=== PATIENT | male | born 1995 | race Caucasian/White ===

== ENCOUNTER 2020-03-04 19:29 | Emergency (ER) | payer MEDICAID, SELFPAY ==
[2020-03-04 20:24] VITALS: BP 144/101; PULSE 81; RESP 16; TEMP 36.9; O2SAT 100; BMI 35.6
--- NOTE | 2020-03-04 20:41 | HMH.EDUTC ---
[facility] [place] Clinical Impression: Rash Disposition: Home, Self-Care Condition on Discharge: Good Instructions: Poison [place], Poison [place], Poison [place] Additional Instructions: follow up with pcp if symptoms worsen or no improvement return or be seen in ed continue steroids and benadryl Referrals: Michelle Negrete APRN [Primary Care Provider] - Time of Disposition: 20:50 Medical Decision Making - Pranay Inquiry Pt receiving controlled substance: No Vital Signs: 03/04/20 20:24 Temperature 98.4 F Temperature Source Oral Pulse Rate [Radial] 81 Respiratory Rate 16 Blood Pressure [Right Arm] 144/101 H Blood Pressure Mean [Right Arm] 115 Blood Pressure Source [Right Arm] Automatic Cuff Blood Pressure Position [Right Arm] Sitting 02 Sat by Pulse Oximetry 100 Oxygen Delivery Method Room Air [facility] HPI - General Chief complaint: Urgent [facility] Stated complaint: Rash Time Seen by Provider: 03/04/20 20:41 Mode of Arrival: Ambulatory Source of Information: Patient Limitations: No Limitations Description of Symptoms (Recalled from Triage Doc. by RN): rash x 5 days HEENT Symptoms (Recalled from RN notes): No Resp Symptoms (Recalled from RN notes): No Skin Symptoms (Recalled from RN notes): Yes MS Symptoms (Recalled from RN notes): No Functional Status (Recalled from RN notes): wnl - History of Present Illness Provider Complaint: 25 yr old male presents for rash to arms,groin, legs, abd and back. pt states he has been taking prednisone dose pack on day 3 and the rash is spreading. pt states he took benadryl 2 hours ago and still no improvement and was told by his md to come get a steroid shot. - Worker's Comp Is this a Worker's Comp case?: No [facility] History - Hepatitis A Screen Drug use history?: No High risk sexual behaviors?: No History of sexually transmitted infection?: No Currently employed?: No Childcare worker?: No Do you have indoor plumbing?: Yes Do you have electricity?: Yes Attestation statement:: This patient has been screened for Hepatitis A risk factors. I have reviewed the patient's past medical history: Yes - Social History Smoking Status: Current every day smoker # Packs/Day (cigarettes): 1 Alcohol Intake: never Occupational Status: other ROS Obtained: Yes Systems reviewed as appropriate & no additional complaints - Constitutional Constitutional: Reports system reviewed and no additional complaints, except as docu, Denies fever(s) - Eyes Eyes: Reports system reviewed and no additional complaints, except as docu, Denies change in vision - ENT Ears, Nose, Mouth, and Throat: Reports system reviewed and no additional complaints, except as docu, Denies bleeding gums, Denies pain with swallowing - Cardiovascular Cardiovascular: Reports system reviewed and no additional complaints, except as docu, Denies pedal edema - Respiratory Respiratory: Yes system reviewed and no additional complaints, except as docu, No coughing up blood - Gastrointestinal Gastrointestingal: Reports: system reviewed and no additional complaints, except as docu. Denies: loose stools - Genitourinary Female Genitourinary: Reports system reviewed and no additional complaints, except as docu, Denies nocturia - Musculoskeletal Musculoskeletal: Reports decreased muscle mass, Denies muscle cramps - Integumentary/Breasts Skin/Breast: Reports system reviewed and no additional complaints, except as docu, Reports rash - Neurologic Neurologic: Reports system reviewed and no additional complaints, except as docu, Denies dizziness - Endocrine Endocrine: Reports system reviewed and no additional complaints, except as docu, Denies fatigue - Hematologic/Lymphatic Henatologic/Lymphatic: Reports system reviewed and no additional complaints, except as docu, Denies lymphadenopathy - Allergic/Immunologic Allergic/Immunologic: Reports system reviewed and no additional complaints, except as docu, Denies itchy e
[2020-03-04 21:16] VITALS: BP 144/101; PULSE 81; RESP 16; TEMP 36.9; O2SAT 100
== END 2020-03-04 21:19 | disposition home or self-care (01) ==
PROVIDERS: Emergency Provider Nurse Practitioner Family; PCP Nurse Practitioner Family
DX: R21 Rash and other nonspecific skin eruption (principal); F17.210 Nicotine dependence, cigarettes, uncomplicated
CPT/HCPCS: 96372; 99201

== ENCOUNTER 2020-03-11 12:31 | Emergency (ER) | payer MEDICAID, SELFPAY ==
[2020-03-11 12:38] VITALS: BP 128/97; PULSE 108; RESP 17; TEMP 36.9; O2SAT 98; BMI 36.6
[2020-03-11 13:02] VITALS: BP 105/52; PULSE 73; RESP 20; O2SAT 98
--- NOTE | 2020-03-11 13:08 | XR_ITS ---
PROCEDURE: XR FEMUR RT 2V CLINICAL INDICATION: injury COMPARISON: No exams were available for comparison FINDINGS: No fracture or dislocation. No lytic or blastic change. There is normal mineralization. The joint spaces are well-preserved. No significant degenerative/arthritic changes. No erosive changes evident. Other findings:None. IMPRESSION: No acute findings. Dictated by: Dr. Miguel Ham MD 03/11/2020 13:55 Dr. Miguel Ham MD in [place] 03/11/2020 13:55
--- NOTE | 2020-03-11 13:10 | HMH.EDGENADL ---
ED Disposition Clinical Impression: Contusion of thigh, right Qualifiers: Encounter type: initial encounter Qualified Code(s): S70.11XA - Contusion of right thigh, initial encounter Disposition: Home, Self-Care Condition on Discharge: Good Instructions: DI for Contusion Additional Instructions: Use your crutches as needed. Ice 20 minutes 4-5 times a day and elevation of your leg to reduce pain and swelling. Ibuprofen 800 mg every 8 hours for pain. Follow-up with primary care provider if not improved in 4 to 5 days. Additional instructions for EXTREMITY PAIN: Return to an emergency department immediately if you have uncontrollable pain, fever, loss of feeling or inability to move your injured extremity. Referrals: Michelle Negrete APRN [Primary Care Provider] - - Critical Care Critical Care Time: No Attestation: On , the high probability of a clinically significant, sudden or life threatening deterioration of the following system(s) required my full and direct attention, intervention and personal management. The time I documented below is in addition to time spent performing reported procedures but includes the following listed in this critical care notation. Medical Decision Making - Pranay Inquiry Pt receiving controlled substance: No Vital Signs: 03/11/20 12:38 03/11/20 13:02 Temperature 98.4 F Temperature Source Oral Pulse Rate [Right Radial] 108 H 73 Respiratory Rate 17 20 Blood Pressure [Right Arm] 128/97 H 105/52 L Blood Pressure Mean [Right Arm] 107 69 Blood Pressure Source [Right Arm] Automatic Cuff Blood Pressure Position [Right Arm] Sitting 02 Sat by Pulse Oximetry 98 98 Oxygen Delivery Method Room Air Room Air Orders (Tests/Meds): ORDERS Category Date Time Status XR femur RT 2V Stat Exams 03/11/20 13:08 Taken - Radiology Data #1 Image(s): Femur Image Reviewed: Yes I reviewed the patient's radiology image Preliminary Findings: Normal/NAD General Adult HPI - General Chief complaint: Extremity Injury, Lower Stated complaint: rt leg acc 03/11/20 Time Seen by Provider: 03/11/20 13:23 Mode of Arrival: Ambulatory Limitations: No Limitations Description of Symptoms (Recalled from ER Triage Doc. by RN): pt presents to ed with c/o right thigh pain just above knee. pt states he was kicked in the leg by a horse yesterday. pt states he took motrin at 0900 today with no relief. - History of Present Illness HPI narrative: The patient was kicked by a horse in his distal lateral right anterior thigh yesterday. He has a small visible bruise in that area but mainly complains of pain which he feels like is in the muscle. It hurts when he flexes his right knee. He says he has been doing okay walking on it., Says he was mostly just concerned about the muscle. He has taken ibuprofen at home without relief. - Related Data Allergies Allergy/AdvReac Type Severity Reaction Status Date / Time No Known Allergies Allergy Verified 03/11/20 12:42 [facility] History - Hepatitis A Screen Drug use history?: No High risk sexual behaviors?: No History of sexually transmitted infection?: No Currently employed?: No Childcare worker?: No Do you have indoor plumbing?: Yes Do you have electricity?: Yes Attestation statement:: This patient has been screened for Hepatitis A risk factors. I have reviewed the patient's past medical history: Yes Medical History: Denies:: Diabetes Mellitus Type 1, Diabetes Mellitus Type 2 - Social History Smoking Status: Current every day smoker # Packs/Day (cigarettes): 1 Alcohol Intake: current Alcohol Intake Frequency:: a few times a month Occupational Status: employed ROS Obtained: Yes Systems reviewed as appropriate & no additional complaints - Musculoskeletal Musculoskeletal: Reports as per HPI - Neurologic Neurologic: Reports numbness, Denies weakness Physical Exam - General General appearance: alert, in no apparent distress
--- NOTE | 2020-03-11 13:13 | PC.NURSE ---
pt going to XRAY
[2020-03-11 13:50] VITALS: BP 105/52; PULSE 73; RESP 20; TEMP 36.9; O2SAT 98
== END 2020-03-11 13:50 | disposition home or self-care (01) ==
PROVIDERS: Emergency Provider Emergency Medicine; PCP Nurse Practitioner Family
DX: S70.11XA Contusion of right thigh, initial encounter (principal); W55.12XA Struck by horse, initial encounter; Y92.73 Farm field as the place of occurrence of the external cause; F17.210 Nicotine dependence, cigarettes, uncomplicated
CPT/HCPCS: 73552; 99282

== ENCOUNTER 2020-07-30 16:28 | Emergency (ER) | payer SELFPAY ==
[2020-07-30] VITALS (7 sets, daily range): BP systolic 124–169; BP diastolic 71–110; PULSE 62–87; RESP 15–16; TEMP 36.8–36.9; O2SAT 98–100; BMI 38.0
--- NOTE | 2020-07-30 16:53 | ECG_ITS ---
APPROVED REPORT Exam: Resting ECG HR:92 bpm ECG Measurements Heart Rate 92 AXES HI 156 P 64 QRSd 98 QRS 10 QT 366 T 25 QTc 452 Conclusion Normal sinus rhythm Isolated Q in iii Abnormal ECG Electronically signed by : Sekou Garcias, 07/31/2020 06:56:14
--- NOTE | 2020-07-30 17:01 | HMH.EDABDPAI ---
ED Disposition Clinical Impression: Gastritis Disposition: Still a Patient Condition on Discharge: Good Instructions: DI for Acute Abdominal Pain Referrals: PCP,No [Primary Care Provider] - - Critical Care Critical Care Time: No Attestation: On 07/30/20, the high probability of a clinically significant, sudden or life threatening deterioration of the following system(s) required my full and direct attention, intervention and personal management. The time I documented below is in addition to time spent performing reported procedures but includes the following listed in this critical care notation. Medical Decision Making - Medical Records Medical records reviewed: Yes: I reviewed the patient's medical records. - Pranay Inquiry Pt receiving controlled substance: No Vital Signs: 07/30/20 16:31 07/30/20 17:40 07/30/20 18:30 Temperature 98.5 F Temperature Source Oral Pulse Rate [Right] 87 73 63 Respiratory Rate 16 16 16 Blood Pressure [Right Arm] 160/98 H 162/110 H 124/71 Blood Pressure Mean [Right Arm] 118 127 88 Blood Pressure Source [Right Arm] Automatic Cuff Automatic Cuff Blood Pressure Position [Right Arm] Sitting Sitting Sitting 02 Sat by Pulse Oximetry 98 98 100 Oxygen Delivery Method Room Air Room Air Room Air - Lab Data Lab results reviewed: Yes: I reviewed the patient's lab results. Lab Results 07/30/20 16:49: WBC 10.1, RBC 5.52, Hgb 17.4, Hct 50.0, MCV 90.6, MCH 31.5 H, MCHC 34.7, RDW 13.3, Plt Count 254, MPV 7.7, Neut % (Auto) 56.7, Lymph % (Auto) 35.4, [place] % (Auto) 5.3, Eos % (Auto) 1.9, Baso % (Auto) 0.8, Neut # (Auto) 5.8, Lymph # (Auto) 3.6, [place] # (Auto) 0.5, Eos # (Auto) 0.2, Baso # (Auto) 0.1 07/30/20 16:49: Sodium 139, Potassium 3.4 L, Chloride 101, Carbon Dioxide 27, Anion Gap 14.4, BUN 8 L, Creatinine 0.70, Estimated Creat Clear 288, Estimated GFR 136, Est GFR ( Amer) 165, Glucose 102 H, Calcium 10.0, Total Bilirubin 0.6, AST 37, ALT 47, Alkaline Phosphatase 78, Troponin I < 0.01, Total Protein 8.3 H, Albumin 4.9, Globulin 3.4 H, Albumin/Globulin Ratio 1.4, Lipase 42 Result diagrams: 07/30/20 16:49 07/30/20 16:49 Orders (Tests/Meds): ED MEDICATIONS Generic Name Dose Route Start Last Admin Trade Name Freq PRN Reason Stop Dose Admin Sodium Chloride 8 ml 07/30/20 16:39 07/30/20 16:46 Sodium Chloride 0.9% 10ml Vial IV 08/29/20 16:38 8 ml NEEDED PRN Administration dilute pepcid Discontinued Medications Generic Name Dose Route Start Last Admin Trade Name Freq PRN Reason Stop Dose Admin Belladonna Alkaloids 60 ml 07/30/20 16:39 07/30/20 16:46 Gi Cocktail 60ml Udc PO 07/30/20 16:40 60 ml ONCE ONE Administration Famotidine 20 mg 07/30/20 16:39 07/30/20 16:46 Famotidine 20mg/2ml Vial IV 07/30/20 16:40 20 mg ONCE ONE Administration Ketorolac Tromethamine 30 mg 07/30/20 17:43 07/30/20 17:58 Ketorolac 30mg/Ml Vial IV 07/30/20 17:44 30 mg ONCE ONE Administration Morphine Sulfate 4 mg 07/30/20 17:39 07/30/20 18:00 Morphine 4mg/Ml Syringe IV 07/30/20 17:40 Not Given ONCE ONE ORDERS Category Date Time Status Troponin I Q3H Lab 07/30/20 18:46 Received Troponin I Q3H Lab 07/30/20 22:45 Ordered Medical Decision Narrative: 25-year-old male presenting with epigastric pain. Nontoxic, afebrile, hemodynamically stable. Initial and repeat abdominal exam negative for rebound/guarding/rigidity. This is not an acute abdomen. Patient received morphine, Toradol, GI cocktail and Pepcid with some symptomatic relief. Initial troponin is negative. EKG is nonischemic and without arrhythmia. CBC, CMP's and lipase are normal/nonactionable. Awaiting second troponin and will turn over the care of this patient to the oncoming physician. Patient remained stable in my care. Abdominal Pain HPI - General Chief Complaint: Abdominal Pain Stated Complaint: Upper possible gastric pain Time Seen by Provider: 0
[2020-07-30 17:02] LABS: Basophils # 0.1 K/mm3 (0-0.2); Basophils % 0.8 % (0.1-2.0); Eosinophils # 0.2 K/mm3 (0.0-0.4); Eosinophils % 1.9 % (0.1-12.0); Hemoglobin 17.4 g/dL (14.1-18.0); Lymphocytes # 3.6 K/mm3 (0.7-4.5); Lymphocytes % 35.4 % (10-50); Mean Corpuscular HGB Conc 34.7 g/dL (31.8-35.4); Mean Corpuscular Hemoglobin 31.5 pg (27.0-31.2); Mean Corpuscular Volume 90.6 fl (80-94); Mean Platelet Volume 7.7 fl (7.4-10.4); Monocytes # 0.5 K/mm3 (0.1-1.0); Monocytes % 5.3 % (1.7-9.3); Neutrophils # 5.8 K/mm3 (1.8-7.8); Neutrophils % 56.7 % (37.0-80.0); Platelet Count 254 K/mm3 (142-424); Red Blood Count 5.52 M/mm3 (4.60-6.20); Red Cell Distribution Width 13.3 % (11.5-17.5); White Blood Count 10.1 K/mm3 (4.8-10.8)
--- NOTE | 2020-07-30 17:11 | PC.NURSE ---
MD request two hour cardiac enzymes.
[2020-07-30 17:13] LABS: Alanine Aminotransferase 47 U/L (12-78); Albumin Level 4.9 g/dl (3.5-5.0); Albumin/Globulin Ratio 1.4 (1.1-1.8); Alkaline Phosphatase 78 U/L (38-126); Anion Gap 14.4 mEq/L (5-15); Aspartate Amino Transferase 37 U/L (17-59); Bilirubin,Total 0.6 mg/dl (0.2-1.3); Blood Urea Nitrogen 8 mg/dl (9-20); Carbon Dioxide 27 mmol/L (22.0-30.0); Chloride 101 mmol/L (98-107); Creatinine Clearance Estimated 288 mL/min (50-200); Estimated Glomerular Filt Rate 136 ml/min (>60); GFR (African American) 165 ML/MIN (>60); Globulin 3.4 g/dL (1.3-3.2); Glucose 102 mg/dl (74-100); Lipase 42 U/L (23-300); Potassium 3.4 mmoL/L (3.5-5.1); Sodium 139 mmol/L (136-145); Total Protein,Serum 8.3 g/dl (6.3-8.2)
[2020-07-30 17:30] LABS: Troponin I < 0.01 ng/ml (0.00-0.034)
--- NOTE | 2020-07-30 17:41 | PC.NURSE ---
MD requested pt get IV morphine, I advised MD I would not be giving the IV pain medication unless he had a pile driver engineer. Spoke with pt who advised he did not have a ride. PT agreeable to toradol.
[2020-07-30 22:52] LABS: Troponin I < 0.01 ng/ml (0.00-0.034)
== END 2020-07-30 20:43 | disposition home or self-care (01) ==
PROVIDERS: Emergency Provider Physician Assistant
DX: K29.70 Gastritis, unspecified, without bleeding (principal); F17.210 Nicotine dependence, cigarettes, uncomplicated
CPT/HCPCS: 80053; 83690; 84484; 85025; 93005; 96374; 96375; 99283

== ENCOUNTER 2022-08-08 18:27 | Emergency (ER) | payer MEDICAID, SELFPAY ==
[2022-08-08 18:49] VITALS: BP 136/87; PULSE 80; RESP 18; TEMP 36.6; O2SAT 99; BMI 38.0
[2022-08-08 18:55] VITALS: BP 136/87; PULSE 80; RESP 18; TEMP 36.6; O2SAT 99; BMI 37.9
--- NOTE | 2022-08-08 19:16 | EXP.UTC ---
Discharge Plan Disposition Patient Disposition: Home, Self-Care Condition: Good Prescriptions Prescriptions: New omeprazole 40 mg capsule,delayed release(DR/EC) 40 mg PO DAILY 14 Days Qty: 14 0RF ondansetron 4 mg tablet,disintegrating 4 mg PO Q8H PRN (Reason: nausea and vomiting) Qty: 10 0RF No Action pantoprazole 40 MG tablet,delayed release (DR/EC) 40 mg PO DAILY Qty: 30 0RF Referrals Follow up/Referrals: Santino Mccloud MD [Primary Care Provider] - See instructions Activity Restrictions/Add. Instructions Additional Instructions/Restrictions: Too late to start Tamiflu. Most effective when started within 48 hours of symptoms onset Lots of rest Increase Fluids water, Gatorade, powerade, pedialyte,if infant/toddler/child Alternate Tylenol and / or ibuprofen as discussed for fever, aches, chills Follow up IMMEDIATELY with your family doctor for new or worsening Symptoms OR no noticeable improvement over the next 48-72 hours, 911 for difficulty or breathing You or your child area contagious until no fever, aches, chills for 24 hours with medication for symptoms Help Prevent the spread of influenza: ?Wash your hands often. Use soap and water. Wash your hands after you use the bathroom, change a child's diapers, or sneeze. Wash your hands before you prepare or eat food. Use gel hand cleanser that has 60% alcohol, when soap and water are not available. Do not touch your eyes, nose, or mouth unless you have washed your hands first. Cover your mouth when you sneeze or cough. Cough into a tissue or the bend of your arm. If you use a tissue, throw it away immediately and wash your hands. Clean shared items with a germ-killing cotton cleaner. Clean table surfaces, doorknobs, and light switches. Do not share towels, silverware, and dishes with people who are sick. Wash bed sheets, towels, silverware, and dishes with soap and water. Wear a mask over your mouth and nose if you are sick. The face mask may help protect others from becoming infected with the flu. Wear the mask when in common areas of your home or if you seek care with a healthcare provider. Stay away from others if you are sick. Stay at home until 24 hours after your fever and symptoms are gone. Clinical Impressions Clinical Impression: Influenza A Stand Alone Forms Stand Alone Forms: Work/School Release Instructions Patient Instructions: DI for Influenza -- Adult, Ondansetron Discharge ED Provider: Ann-Marie Damian [facility] HPI General Stated complaint: fever.vomiting HUBBARD Body Aches Mode of Arrival: Ambulatory Source of Information: Patient Limitations: No Limitations Time Seen by Provider: 08/08/22 19:23 Description of Symptoms (Recalled from Triage Doc. by RN): PATIENT C/O FEVER, HEADACHE, BODY ACHES AND STOMACH ACHE X 3 DAYS HEENT Symptoms (Recalled from RN notes): Yes Resp Symptoms (Recalled from RN notes): No Skin Symptoms (Recalled from RN notes): No MS Symptoms (Recalled from RN notes): No Functional Status (Recalled from RN notes): WNL History of Present Illness Provider Complaint: Patient states that for the last 3 days he has been having body aches, chills, headache, upset stomach and N/V States that he feels like he may have the flu or something States that today his fever was better but still not feeling well States that also he is out of his stomach medication and wanted to see if he could get a prescription for some until he sees his PCP Related Data Previous Rx's Medication Instructions Recorded pantoprazole 40 mg tablet,delayed 40 mg PO DAILY #30 tabs 07/30/20 release omeprazole 40 mg capsule,delayed 40 mg PO DAILY 14 days #14 caps 08/08/22 release ondansetron 4 mg disintegrating 4 mg PO Q8H PRN nausea and 08/08/22 tablet vomiting #10 tabs Allergies Allergy/AdvReac
[2022-08-08 19:28] VITALS: BP 136/87; PULSE 80; RESP 18; TEMP 36.6; O2SAT 99
[2022-08-08 19:28] LABS: UTC Influenza A Antigen Negative (Negative)
[2022-08-08 19:29] LABS: UTC Influenza B Antigen Negative (Negative)
== END 2022-08-08 19:45 | disposition home or self-care (01) ==
PROVIDERS: Emergency Provider Nurse Practitioner; PCP Emergency Medicine
DX: J10.1 Influenza due to other identified influenza virus with other respiratory manifestations (principal)
CPT/HCPCS: 87804; 99212; 99213; G0463

== ENCOUNTER 2023-05-07 01:24 | Emergency (ER) | payer SELFPAY ==
[2023-05-07 01:24] VITALS: BP 127/76; PULSE 87; RESP 16; TEMP 36.5; O2SAT 97; BMI 32.3
--- NOTE | 2023-05-07 01:37 | CT_ITS ---
PROCEDURE INFORMATION: Exam: CT Abdomen And Pelvis With Contrast Exam date and time: 05/07/2023 2:04 AM Age: 28 years old Clinical indication: Abdominal pain; Epigastric; Additional info: Epigastric/ruq pain, recent heavy drinking TECHNIQUE: Imaging protocol: Computed tomography of the abdomen and pelvis with contrast. Radiation optimization: All CT scans at this facility use at least one of these dose optimization techniques: automated exposure control; mA and/or kV adjustment per patient size (includes targeted exams where dose is matched to clinical indication); or iterative reconstruction. Contrast material: ISOVUE; Contrast volume: 75 ml; Contrast route: IV; REPORTING DATA: Count of CT and Cardiac NM exams in prior 12 months: This patient has received 0 known CTs and 0 known cardiac nuclear medicine studies in the 12 months prior to the current study. COMPARISON: No relevant recent comparison exams. FINDINGS: Pancreaticohepatobiliary: Liver: Enlarged liver shows probable diffuse fatty infiltration. No significant intra-or extrahepatic ductal dilation. Gallbladder: Unremarkable without obvious gallstones. Pancreas: Normal in size normal in size and attenuation without peripancreatic fluid or obvious mass. Spleen: Normal in size and attenuation. . Genitourinary: Adrenal gland: No adrenal mass. Kidneys: Nonobstructive punctate RIGHT renal stone(s) measuring 1-3 mm. Kidneys are otherwise unremarkable. Urinary bladder: Distended urinary bladder appears unremarkable. Bilateral inguinal hernia containing fat. No free fluid in the pelvis. . Gastrointestinal: Bowel: Colon contains a moderate amount of air and fecal matter. Distended air/fluid containing distal thoracic esophagus suggestive of reflux. No free intraperitoneal air or fluid collection. Appendix: A normal APPENDIX is visualized. . Other findings: Aorta: Aorta appears unremarkable without evidence of aortic aneurysm. Lymph nodes: No bulky lymph node enlargement. 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 Chronic bilateral L4 pars fractures with spondylolisthesis of L4 on L5. Soft tissues: Periumbilical hernia containing fat. IMPRESSION: Nonemergent/incidental findings as described without any acute abdominopelvic abnormality.
[2023-05-07 01:47] LABS: Basophils # 0.1 K/mm3 (0-0.2); Basophils % 0.8 % (0.1-2.0); Eosinophils # 0.3 K/mm3 (0.0-0.4); Eosinophils % 3.7 % (0.1-12.0); Hematocrit 47.4 % (42.0-52.0); Hemoglobin 16.9 g/dL (14.1-18.0); Lymphocytes # 3.1 K/mm3 (0.7-4.5); Lymphocytes % 34.9 % (10-50); Mean Corpuscular HGB Conc 35.7 g/dL (31.8-35.4); Mean Corpuscular Hemoglobin 33.8 pg (27.0-31.2); Mean Corpuscular Volume 94.8 fl (80-94); Monocytes # 0.4 K/mm3 (0.1-1.0); Monocytes % 4.4 % (1.7-9.3); Neutrophils % 56.4 % (37.0-80.0); Platelet Count 223 K/mm3 (142-424); Red Blood Count 5.01 M/mm3 (4.60-6.20); Red Cell Distribution Width 13.3 % (11.5-17.5); White Blood Count 8.9 K/mm3 (4.8-10.8)
[2023-05-07 01:52] LABS: Alanine Aminotransferase 42 U/L (12-78); Albumin Level 4.8 g/dl (3.5-5.0); Albumin/Globulin Ratio 1.5 (1.1-1.8); Alkaline Phosphatase 46 U/L (38-126); Anion Gap 16.4 mEq/L (5-15); Aspartate Amino Transferase 43 U/L (17-59); Bilirubin,Total 0.5 mg/dl (0.2-1.3); Blood Urea Nitrogen 5 mg/dl (9-20); Calcium 8.9 mg/dl (8.4-10.2); Carbon Dioxide 23 mmol/L (22.0-30.0); Chloride 106 mmol/L (98-107); Creatinine Clearance Estimated 262 mL/min (50-200); Estimated Glomerular Filt Rate 159 ml/min (>60); GFR (African American) 193 ML/MIN (>60); Globulin 3.2 g/dL (1.3-3.2); Glucose 126 mg/dl (74-100); Lipase 43 U/L (23-300); Potassium 3.4 mmoL/L (3.5-5.1); Sodium 142 mmol/L (136-145)
--- NOTE | 2023-05-07 02:19 | HMH.EDGENADL ---
Discharge Plan Disposition Patient Disposition: Home, Self-Care Prescriptions Prescriptions: No Action pantoprazole 40 MG tablet,delayed release (DR/EC) 40 mg PO DAILY Qty: 30 0RF omeprazole 40 mg capsule,delayed release(DR/EC) 40 mg PO DAILY 14 Days Qty: 14 0RF ondansetron 4 mg tablet,disintegrating 4 mg PO Q8H PRN (Reason: nausea and vomiting) Qty: 10 0RF Referrals Follow up/Referrals: Provider,Referral, MD [Primary Care Provider] - See instructions Activity Restrictions/Add. Instructions Additional Instructions/Restrictions: Please follow-up with your primary care provider. Please begin taking omeprazole as previously prescribed. Please avoid NSAIDs as they can make your symptoms significantly worse. Alcohol, coffee and acidic drinks will make it worse as well. Please follow-up with the resources provided for treatment of your alcoholism. Be careful with quitting alcohol cold turkey, you can go into serious/life-threatening withdrawal. Clinical Impressions Clinical Impression: Gastritis, Alcohol use disorder Instructions Patient Instructions: DI for Acute Abdominal Pain Discharge ED Provider: Karan Mack Adult HPI General Chief complaint: Abdominal Pain Stated complaint: Abdominal Pain Time Seen by Provider: 05/07/23 01:28 Mode of Arrival: EMS Source of Information: Patient Limitations: No Limitations Description of Symptoms (Recalled from ER Triage Doc. by RN): pt reports had been drinking alcohol today and started having epigastric pain and nausea, reports has been having these issues for the last 6 weeks. History of Present Illness HPI narrative: 28-year-old male, history of chronic alcohol use that was recently exacerbated due to custody issues, presents with acute on chronic epigastric pain. Patient reports that he had sudden onset severe epigastric pain with associated nausea a few hours prior to arrival. Patient reports that he has been drinking heavily over the last couple of months (usually a 12 pack and a pint per day) but has been a chronic drinker since he was 15. He reports history of gastritis, denies history of pancreatitis. No prior surgeries. Smokes tobacco and marijuana, denies IV drug use. Patient has been drinking tonight. Related Data Previous Rx's Medication Instructions Recorded pantoprazole 40 mg tablet,delayed 40 mg PO DAILY #30 tabs 07/30/20 release omeprazole 40 mg capsule,delayed 40 mg PO DAILY 14 days #14 caps 08/08/22 release ondansetron 4 mg disintegrating 4 mg PO Q8H PRN nausea and 08/08/22 tablet vomiting #10 tabs Allergies Allergy/AdvReac Type Severity Reaction Status Date / Time No Known Allergies Allergy Verified 03/11/20 12:42 [facility] Disclaimer: The information contained in this section may have been updated after the patient was seen, as this information can be updated by other users. Medical History (Updated 05/07/23 @ 03:51 by Karan Mack MD) No significant past medical history Social History (Updated 08/08/22 @ 19:05 by Ninfa Walker RN) Smoking Status: Current every day smoker second hand exposure: Yes alcohol intake: current current occupational status: employed Travel in the last 8 weeks: None ROS Obtained: Yes All systems reviewed & no additional complaints except as documented Physical Exam General General appearance: alert and anxious Head Head exam: atraumatic and normocephalic Eye Eye exam: Present normal appearance, PERRL and EOMI ENT ENT exam: Present normal oropharynx and normal external ear exam Neck Neck exam: Present normal inspection and full ROM Chest Chest inspection: Present normal inspection and symmetric chest wall rise; Absent tenderness Respiratory Respiratory exam: Present normal lung sounds bilaterally; Absent respiratory distress Cardiovascular Cardiovascular exam: Present regular rate and normal rhythm Abdominal Exam Abdominal exam: Present soft and te
--- NOTE | 2023-05-07 02:20 | PC.NURSE ---
pt reports decrease in abd pain, denies n/v. awaiting CT results.
[2023-05-07 02:45] VITALS: BP 119/64; PULSE 62; O2SAT 98
[2023-05-07 03:00] VITALS: PULSE 61; O2SAT 96
[2023-05-07 03:30] VITALS: BP 116/73; PULSE 62; O2SAT 94
[2023-05-07 04:15] VITALS: BP 116/73; PULSE 62; RESP 20; TEMP 36.6; O2SAT 98
--- NOTE | 2023-05-07 04:16 | PC.NURSE ---
Called pts mother per request for ride, stated she would send someone to pick pt up. awaiting ride
== END 2023-05-07 04:33 | disposition home or self-care (01) ==
PROVIDERS: Emergency Provider Emergency Medicine
DX: K29.70 Gastritis, unspecified, without bleeding (principal); F10.20 Alcohol dependence, uncomplicated
CPT/HCPCS: 74177; 80053; 83690; 85025; 96361; 96374; 96375; 99285; J2405; Q9967

== ENCOUNTER 2024-06-27 10:43 | Emergency (ER) | payer SELFPAY ==
[2024-06-27 10:44] VITALS: BP 139/91; PULSE 82; RESP 16; TEMP 36.7; O2SAT 99; BMI 38.0
[2024-06-27 10:54] VITALS: PULSE 75; O2SAT 96
--- NOTE | 2024-06-27 10:55 | XR_ITS ---
PROCEDURE INFORMATION: Exam: XR Left Wrist Exam date and time: 06/27/2024 10:53 AM Age: 29 years old Clinical indication: Injury or trauma; Fall; Blunt trauma (contusions or hematomas); Wrist; Left TECHNIQUE: Imaging protocol: Radiologic exam of the left wrist. Views: 1 or 2 views. COMPARISON: CR Hand L 06/27/2024 10:50 AM FINDINGS: Bones/joints: No evidence of acute fracture or malalignment. Carpal arcs are maintained. Soft tissues: Unremarkable. IMPRESSION: No evidence of acute osseous abnormality in the left wrist.
--- NOTE | 2024-06-27 10:55 | XR_ITS ---
PROCEDURE INFORMATION: Exam: XR Left Hand Exam date and time: 06/27/2024 10:50 AM Age: 29 years old Clinical indication: Injury or trauma; Fall; Blunt trauma (contusions or hematomas); Hand; Left TECHNIQUE: Imaging protocol: Radiologic exam of the left hand. Views: 1 or 2 views. COMPARISON: No relevant prior studies available. FINDINGS: Bones/joints: Nondisplaced fracture in the 4th distal phalangeal tuft. Joint alignment remains congruent. No other evidence of fracture in the left hand. Soft tissues: Unremarkable. IMPRESSION: Nondisplaced fracture in the 4th distal phalangeal tuft.
--- OUTSIDE RECORDS SUMMARY | 2024-06-27 10:57 | XMS_ITS | Encounter Summary ---
Author Organization [facility] Address [address] [place] [address] Care Team Providers Care Accounts Specialist Name Role Phone Unavailable Primary Care Provider Unavailabl e Reason for Visit * Reason Onset Date Comments REFERRAL NEEDED 10/10/2021 Encounter Details Date Type Department Care Team (Late st Contact Info) Description 10/10/2021 Telephone [facility] [address] [facility] [address] [place] [address] Provider, [place] [address] REFERRAL NEEDED Social History Tobacco Use Types Packs/Day Years Used Date Smoking Tobacco: Never Assessed Sex and Gender Information Value Date Recorded Sex Assigned at Not on file Legal Sex Male 2:18 PM EDT Gender Identity Not on file Sexual Orientation Not on file documented as of this encounter Miscellaneous Notes * Telephone Encounter - Marysol Juarez RegSched Rep - 10/10/2021 2:24 PM EDT PATIENT STATES HE WAS REFERRED TO DR GILLESPIE MONTHS AGO BY HIS CHIROPRACTOR, BUT WAS UNABLE TO FOLLOW THROUGH FOR PERSONAL REASONS. PATIENT HAD MRI APPROX 6 MONTHS AGO AND HAS HAD NO PREV NS. UNABLE TO COMPLETE FULL REGISTRATION, PATIENT WAS AT WORK. PATIENT STATES HE WILL CONTACT CHIROPRACTOR WITH HUB FAX # TO SEND REFERRAL, PROGRESS NOTES, AND MRI REPORT. documented in this encounter Plan of Treatment Not on file documented as of this encounter Visit Diagnoses Not on filedocumented in this encounter
--- OUTSIDE RECORDS SUMMARY | 2024-06-27 10:57 | XMS_ITS | Clinical Summary ---
Author Organization [facility] Address [address] [place] [address] Care Team Providers Care Ice Cream Truck Driver Name Role Phone Unavailable Primary Care Provider Unavailabl e Social History Tobacco Use Types Packs/Day Years Used Date Smoking Tobacco: Never Assessed Abuse Screen Answer Date Recorded Unsafe at Home or Work/School Not on file Feels Threatened by Someone? Not on file Does Anyone Keep You from Co ntacting Others or Doint Things Outside the Home? Not on file 05/09/2023 Physical Sign of Abuse Present Not on file 1 Housing Stability Answer Date Recorded Current Living Arrangements Not on file 04/27 Potentially Unsafe Housing Conditions Not on tiffanie e 05/09/2023 Family and Community Support Answer Nick e Recorded Help with Day-to-Day Activities Not on file 05/09/2023 Lonely or Isolated Not on file 05/09/2023 Employment Answer Date Recorded Do you want help finding or keeping work or a shreyas b? Not on file 05/09/2023 Disabilities Answer Date Recorded Concentrating, Remembering, or Making Decisions Difficulty Not on file 05/09/2023 Doing Errands Independently Difficulty Not on fi le 05/09/2023 Education Answer Date Recorded Help with school or training? Not on file Preferred Language Not on file 05/09/2023 Sex and Gender Information Value Date Recorded Sex Assigned at Not on file Legal Sex Male 2:18 PM EDT Gender Identity Not on file Sexual Orientation Not on file Plan of Treatment Health Maintenance Due Date Last Done Comments TDAP/TD VACCINES (1 - Tdap) 2013 ANNUAL PHYSICAL 10/10/2021 HEPATITIS C SCREENING 10/10/2021 INFLUENZA VACCINE 01/26/2024 COVID-19 Vaccine (2023-2 5 season) 2024 Pneumococcal Vaccine 0-64 Aged Out No longer eligible based on patient's age to complete this topic Insurance [place]
[2024-06-27 11:06] VITALS: BP 134/86; PULSE 80; O2SAT 98
--- NOTE | 2024-06-27 11:06 | PC.NURSE ---
Back from Radiology
[2024-06-27 11:30] VITALS: BP 121/80; PULSE 72; O2SAT 96
--- NOTE | 2024-06-27 11:36 | ED_ITS ---
Discharge Plan Disposition Patient Disposition: Home, Self-Care Chief Complaint: Extremity Injury, Upper Prescriptions Prescriptions: No Action pantoprazole 40 MG tablet,delayed release (DR/EC) 40 mg PO DAILY Qty: 30 0RF omeprazole 40 mg capsule,delayed release(DR/EC) 40 mg PO DAILY 14 Days Qty: 14 0RF ondansetron 4 mg tablet,disintegrating 4 mg PO Q8H PRN (Reason: nausea and vomiting) Qty: 10 0RF Referrals Follow up/Referrals: Provider,Referral, MD [Primary Care Provider] - See instructions Thai Jones DO [Staff Physician] - See instructions Activity Restrictions/Add. Instructions Additional Instructions/Restrictions: Follow-up with Dr. Jones in in about 2 weeks to have hand reimaged. Keep splint dry in the meantime. Call your family doctor to establish care for this visit to the emergency department and schedule follow-up within 48 hours to ensure improvement. If you have any worsening of your condition or any other concerning signs or symptoms, return to the emergency department or your primary care doctor for further evaluation. Clinical Impressions Clinical Impression: Fx metacarpal shaft-closed Print Language Print Language: Comoran Discharge ED Provider: Dank Vickers General Adult HPI General Chief complaint: Extremity Injury, Upper Stated complaint: AO-06/26/24 2100- Fall, Pain in L hand Time Seen by Provider: 06/27/24 10:58 Mode of Arrival: Ambulatory Source of Information: Patient Limitations: No Limitations Description of Symptoms (Recalled from ER Triage Doc. by RN): Patient reports slipping and falling on the snow last night and injuring his left hand. States he took ibuprofen at approx 430am today. History of Present Illness HPI narrative: Please note that above description of symptoms, in this electronic medical record under categorization of recalled from ER triage doctor by RN are reflective of an initial nursing assessment, however, is not reflective of my full history and physical exam that was personally taken and clarified. Consequentially, this preceding description of symptoms, which may include the patient's categorized chief complaint in the EMR, do not reflect my personal clinical impression, and the ultimate description of history of present illness and patient stated complaints should be deferred to this section of the note. Unless stated otherwise or congruent with this section of the note, additional signs, symptoms, or incongruence should be interpreted as inaccurate with my clinical impression. Related Data Previous Rx's ?Medication ?Instructions ?Recorded pantoprazole 40 mg tablet,delayed 40 mg PO DAILY #30 tabs 07/30/20 release omeprazole 40 mg capsule,delayed 40 mg PO DAILY 14 days #14 caps 08/08/22 release ondansetron 4 mg disintegrating 4 mg PO Q8H PRN nausea and 08/08/22 tablet vomiting #10 tabs Allergies Allergy/AdvReac Type Severity Reaction Status Date / Time Penicillins Allergy Unknown Verified 06/27/24 10:52 allergy reaction [facility] Disclaimer: The information contained in this section may have been updated after the patient was seen, as this information can be updated by other users. Medical History (Updated 06/27/24 @ 12:23 by Dank Vickers MD) No significant past medical history Social History (Updated 08/08/22 @ 19:05 by Ninfa Walker RN) Smoking Status: Current every day smoker second hand exposure: Yes alcohol intake: current alcohol intake frequency: a few times a month current occupational status: employed Other Medical History Have you received the Flu Vaccine for this season: No Have you received the Pneumonia Vaccine: No ROS Obtained: Yes All systems reviewed & no additional complaints except as documented Physical Exam General General appearance: alert Head Head exam: atraumatic and normocephalic Eye Eye exam: Present normal appearance, PERRL and EOMI Neck Neck exam: Present normal inspection, full ROM and trachea midline Respiratory Respiratory exam: Absent respiratory distress, wheezes, stridor, accessory mus alvaro use or prolonged expiratory phase Cardiovascular Cardiovascular exam: Present other (Pulses equal symmetric in upper and lower extremities) Abdominal Exam Abdominal exam: Present soft; Absent distention, tenderness or pulsatile mass Extremities Exam Extremities exam: Present other (Swelling, tenderness medial aspect left hand metacarpal and MCP #5) Neurological Exam Neurological exam: Present alert, oriented X3 and CN II-XII intact; Absent motor sensory deficit Skin Skin exam: Present warm and dry; Absent diaphoresis or erythema Medical Decision Making Medical Records Medical records reviewed: Yes I reviewed the patient's medical records. Screening: Per USPSTF and CDC recommendations, given the prevalence of disease in our region, it is our hospital?s policy to screen for HIV and viral Hepatitis for all patients aged 18 and over and those with ongoing risk factors. Pranay Inquiry Pt receiving controlled substance: No Pranay was queried for this patient: No Vital Signs: 06/27/24 10:44 06/27/24 10:54 06/27/24 11:06 Temperature 98.1 F Temperature Source Oral Pulse Rate 75 80 Pulse Rate [Radial] 82 Respiratory Rate 16 Blood Pressure 134/86 Blood Pressure [Right Arm] 139/91 H Blood Pressure Mean Blood Pressure Mean [Right Arm] 107 Blood Pressure Source [Right Arm] Automatic Cuff Blood Pressure Position [Right Arm] Sitting 02 Sat by Pulse Oximetry 99 96 98 Oxygen Delivery Method Room Air 06/27/24 11:30 Temperature Temperature Source Pulse Rate 72 Pulse Rate [Radial] Respiratory Rate Blood Pressure 121/80 Blood Pressure [Right Arm] Blood Pressure Mean 87 Blood Pressure Mean [Right Arm] Blood Pressure Source [Right Arm] Blood Pressure Position [Right Arm] 02 Sat by Pulse Oximetry 96 Oxygen Delivery Method Orders (Tests/Meds): ORDERS Category Date Time Status Wrist XR left 2 views [XR wrist LT 2V] Stat Exams 06/27/24 10:55 Completed XR hand LT 2V Stat Exams 06/27/24 10:55 Completed HIV (1&2) Antibody Rapid Stat Lab 06/27/24 10:51 Ordered Hep C Ab with Reflex to RNA Stat Lab 06/27/24 10:51 Ordered Medical Decision Narrative: Otherwise healthy 29-year-old male presenting with left hand pain. Patient states that he was walking outside and slipped in the snow yesterday, 06/26. On the way down, hit his hand on the corner of a step. Significant swelling and tenderness. Subjective numbness in that little finger. Has not taken anything for the pain, but tried icing it and that seemed to help a little bit. Came in for further evaluation given continued pain and swelling. History obtained the patient. On arrival, very well-appearing. He has bruising, swelling, tenderness and edema of left fifth metacarpal, MCP. Range of motion intact, neurovascular intact. Differential includes fracture, sprain, strain, soft tissue injury, among others. X-rays obtained, on independent rotation, patient appears to have nondisplaced fracture at the base of his left fifth metacarpal. Ulnar gutter splint placed. Patient remained neurovascularly intact after splint placement as well. Because patient at baseline without signs or symptoms of clinical decompensation, deemed appropriate for discharge. Results were relayed to patient who voiced understanding and were agreeable to outpatient management and follow up. I discussed my clinical impression with patient and answered all questions. At this time, the evidence for any other entities in the differential is insufficient to warrant any further testing or ED observation. This was explained as well. Advisory was given that persistent or worsening symptoms require further evaluation. I confirmed the understanding of this discussion. Police And Fire Dispatcher disclaimer Much of this encounter note is an electronic agricultural equipment sales engineer spoken language to printed text. Electronic agricultural equipment sales engineer of the spoken language may permit errors. Although I have reviewed the note, some errors may still exist. Procedures Orthopedic Splinting/Casting Injury #1: Side: left Upper Extremity Injury Location: hand Upper Extremity Immobilizer: ulnar gutter Post Cast/Splinting Neuro Status: intact and no change Post Cast/Splinting Vasc Status: intact and no change Critical Care Critical Care Time Critical Care Time: No
[2024-06-27] MEDS: HYDROCODONE/APAP 5/325 MG TABLET 1 TAB PO (12:35)
[2024-06-27 12:38] VITALS: BP 129/94; PULSE 68; RESP 16; TEMP 36.7; O2SAT 99
== END 2024-06-27 12:39 | disposition home or self-care (01) ==
PROVIDERS: Emergency Provider Emergency Medicine
DX: S62.329A Displaced fracture of shaft of unspecified metacarpal bone, initial encounter for closed fracture (principal); M79.642 Pain in left hand; W00.0XXA Fall on same level due to ice and snow, initial encounter; Y93.89 Activity, other specified; Y92.9 Unspecified place or not applicable
CPT/HCPCS: 73100; 73120; 99283

== ENCOUNTER 2024-07-14 03:15 | Emergency (ER) | payer SELFPAY ==
[2024-07-14 03:15] VITALS: BP 124/95; PULSE 98; RESP 18; TEMP 37.1; O2SAT 100; BMI 36.6
--- NOTE | 2024-07-14 03:15 | XR_ITS ---
PROCEDURE INFORMATION: Exam: XR Left Foot Exam date and time: 07/14/2024 3:30 AM Age: 29 years old Clinical indication: Injury or trauma; Fall; Blunt trauma; Foot; Left; Additional info: Fall pain TECHNIQUE: Imaging protocol: Radiologic exam of the left foot. Views: 1 or 2 views. COMPARISON: CR Lower leg L 07/14/2024 3:29 AM FINDINGS: Bones/joints: Spiral/oblique fracture through the distal fibula. Transverse fracture through the medial malleolus. Cortical disruption posterior calcaneus. Heel spur. Disruption of the anterior process of the calcaneus. Soft tissues: Normal. IMPRESSION: 1. Trimalleolar fracture. 2. Suspicion of anterior process of the calcaneus fracture.
--- NOTE | 2024-07-14 03:15 | XR_ITS ---
PROCEDURE INFORMATION: Exam: XR Pelvis Exam date and time: 07/14/2024 3:20 AM Age: 29 years old Clinical indication: Injury or trauma; Fall; Blunt trauma (contusions or hematomas); Bilateral; Pelvic region TECHNIQUE: Imaging protocol: Radiologic exam of the pelvis. Views: 1 or 2 view. COMPARISON: CT ABDOMEN PELVIS W CON 05/07/2023 2:04 AM FINDINGS: Bones/joints: Unremarkable. No acute fracture. Soft tissues: Unremarkable. IMPRESSION: No acute findings.
--- NOTE | 2024-07-14 03:15 | XR_ITS ---
PROCEDURE INFORMATION: Exam: XR Left Ankle Exam date and time: 07/14/2024 3:22 AM Age: 29 years old Clinical indication: Injury or trauma; Fall; Blunt trauma; Ankle; Left; Additional info: Fall severe ankle pain TECHNIQUE: Imaging protocol: Radiologic exam of the left ankle. Views: 3 or more views. COMPARISON: No relevant prior studies available. FINDINGS: Bones/joints: Minimally displaced oblique/spiral fracture through the distal fibula. Minimally displaced transverse fracture through the medial malleolus with suggestion of vertical component extending along the medial aspect of the tibia. Cortical irregularity disrupting the superior and inferior aspect of the posterior malleolus. Questionable fracture through the anterior process of the calcaneus. Soft tissues: Diffuse swelling about the ankle joint. IMPRESSION: 1. Findings concerning for trimalleolar fracture. Consider cross-sectional evaluation for further assessment. 2. Findings concerning for fracture through the anterior process of the calcaneus, attention on follow-up cross-sectional evaluation if pursued.
--- NOTE | 2024-07-14 03:15 | XR_ITS ---
PROCEDURE INFORMATION: Exam: XR Right Knee Exam date and time: 07/14/2024 3:30 AM Age: 29 years old Clinical indication: Injury or trauma; Fall; Blunt trauma; Knee; Right; Additional info: Fall pain at medial knee TECHNIQUE: Imaging protocol: Radiologic exam of the right knee. Views: 3 views. COMPARISON: CR XR FEMUR RT 2V 03/11/2020 1:08 PM FINDINGS: Bones/joints: Normal. Soft tissues: Normal. IMPRESSION: No acute findings.
--- NOTE | 2024-07-14 03:15 | XR_ITS ---
PROCEDURE INFORMATION: Exam: XR Left Tibia and Fibula Exam date and time: 07/14/2024 3:29 AM Age: 29 years old Clinical indication: Injury or trauma; Fall; Blunt trauma; Lower leg; Left; Additional info: Fall ankle pain TECHNIQUE: Imaging protocol: Radiologic exam of the left tibia and fibula. Views: 2 views. COMPARISON: CR Ankle L 07/14/2024 3:22 AM FINDINGS: Bones/joints: Normal. Soft tissues: Normal. IMPRESSION: No acute findings.
--- NOTE | 2024-07-14 03:15 | XR_ITS ---
PROCEDURE INFORMATION: Exam: XR Chest Exam date and time: 07/14/2024 3:21 AM Age: 29 years old Clinical indication: Injury or trauma; Fall; Blunt trauma (contusions or hematomas) TECHNIQUE: Imaging protocol: Radiologic exam of the chest. Views: 1 view. COMPARISON: CT ABDOMEN PELVIS W CON 05/07/2023 2:04 AM FINDINGS: Lungs: Unremarkable. No consolidation. Pleural spaces: Unremarkable. No pleural effusion. No pneumothorax. Heart/Mediastinum: Unremarkable. No cardiomegaly. Bones/joints: Unremarkable. IMPRESSION: No acute findings.
--- NOTE | 2024-07-14 03:36 | ED_ITS ---
Discharge Plan Disposition Patient Disposition: Home, Self-Care Prescriptions Prescriptions: New tramadol 50 mg tablet 50 mg PO Q6H PRN (Reason: pain) Qty: 12 0RF No Action pantoprazole 40 MG tablet,delayed release (DR/EC) 40 mg PO DAILY Qty: 30 0RF omeprazole 40 mg capsule,delayed release(DR/EC) 40 mg PO DAILY 14 Days Qty: 14 0RF ondansetron 4 mg tablet,disintegrating 4 mg PO Q8H PRN (Reason: nausea and vomiting) Qty: 10 0RF hydrocodone-acetaminophen 5-325 mg tablet 1 tab PO Q6H PRN (Reason: pain) Qty: 10 0RF Referrals Follow up/Referrals: Provider,Referral, MD [Primary Care Provider] - See instructions Activity Restrictions/Add. Instructions Additional Instructions/Restrictions: It is important that you remain nonweightbearing of the left lower extremity. Please keep the leg elevated is much as possible as this will reduce swelling and pain. Please take Tylenol as needed for pain. I sent a prescription for tramadol as well to [facility]. Please call to follow-up with Dr. Jones's office as soon as possible. Clinical Impressions Clinical Impression: Closed trimalleolar fracture of ankle Qualifiers: Encounter type: initial encounter Laterality: left Qualified Code(s): S82.852A - Displaced trimalleolar fracture of left lower leg, initial encounter for closed fracture Print Language Print Language: Kazakh Discharge ED Provider: Karan Mack General Adult HPI General Chief complaint: Extremity Injury, Lower Stated complaint: ankle injury Time Seen by Provider: 07/14/24 03:15 Mode of Arrival: Ambulatory Source of Information: Patient Limitations: No Limitations Description of Symptoms (Recalled from ER Triage Doc. by RN): Pt to ED with c/o left ankle injury, spint in place. Pt reports he slipped in the mud and felt a pop . Pt also reports right knee pain. Pt reports he had 2 beers and 2 shots of daya. Pt smells of ETOH. History of Present Illness HPI narrative: 29-year-old male with and left hand fracture presents for fall with right knee pain, left ankle pain. He reports that he was drinking some tonight and slipped and fell outside with a pop and severe pain in his left ankle. He denies any other injuries. Denies loss of consciousness. Did not hit his head. Related Data Previous Rx's ?Medication ?Instructions ?Recorded pantoprazole 40 mg tablet,delayed 40 mg PO DAILY #30 tabs 07/30/20 release omeprazole 40 mg capsule,delayed 40 mg PO DAILY 14 days #14 caps 08/08/22 release ondansetron 4 mg disintegrating 4 mg PO Q8H PRN nausea and 08/08/22 tablet vomiting #10 tabs hydrocodone 5 mg-acetaminophen 325 1 tab PO Q6H PRN pain #10 tabs 06/27/24 mg tablet tramadol 50 mg tablet 50 mg PO Q6H PRN pain #12 tabs 07/14/24 Allergies Allergy/AdvReac Type Severity Reaction Status Date / Time Penicillins Allergy Unknown Verified 07/06/24 11:05 allergy reaction [facility] Disclaimer: The information contained in this section may have been updated after the patient was seen, as this information can be updated by other users. Medical History No significant past medical history Social History Smoking Status: Current every day smoker second hand exposure: Yes alcohol intake: current alcohol intake frequency: a few times a month current occupational status: employed Travel in the last 8 weeks: None Other Medical History Have you received the Flu Vaccine for this season: No Have you received the Pneumonia Vaccine: No ROS Obtained: Yes All systems reviewed & no additional complaints except as documented Physical Exam General General appearance: alert and appears intoxicated Head Head exam: atraumatic and normocephalic Eye Eye exam: Present normal appearance, PERRL and EOMI ENT ENT exam: Present normal oropharynx and normal external ear exam Neck Neck exam: Present normal inspection and full ROM; Absent tenderness Chest Chest inspection: Present normal inspection and symmetric chest wall rise; Absent tenderness Respiratory Respiratory exam: Present normal lung sounds bilaterally; Absent respiratory distress Cardiovascular Cardiovascular exam: Present regular rate and normal rhythm Abdominal Exam Abdominal exam: Present soft; Absent distention, tenderness or guarding Extremities Exam Extremities exam: Present other (Tenderness to palpation of the medial right knee, diffuse tenderness within the left ankle, no obvious bruising or deformity) Back Exam Back exam: Present normal inspection; Absent tenderness Neurological Exam Neurological exam: Present alert and oriented X3 Psychiatric Psychiatric exam: Present normal affect and normal mood Skin Skin exam: Present warm, dry and normal color Lymphatic Lymphatic Findings: no adenopathy Medical Decision Making Medical Records Medical records reviewed: Yes I reviewed the patient's medical records. Screening: Per USPSTF and CDC recommendations, given the prevalence of disease in our region, it is our hospital?s policy to screen for HIV and viral Hepatitis for all patients aged 18 and over and those with ongoing risk factors. Pranay Inquiry Pt receiving controlled substance: No Pranay was queried for this patient: No Vital Signs: 07/14/24 03:15 07/14/24 06:01 Temperature 98.7 F 98.2 F Temperature Source Oral Oral Pulse Rate 99 H Pulse Rate [Left Radial] 98 H Respiratory Rate 18 20 Blood Pressure 124/95 H Blood Pressure [Right Arm] 124/95 H Blood Pressure Mean [Right Arm] 104 Blood Pressure Source Automatic Cuff Blood Pressure Source [Right Arm] Automatic Cuff Blood Pressure Position Sitting Blood Pressure Position [Right Arm] Supine 02 Sat by Pulse Oximetry 100 Oxygen Delivery Method Room Air Room Air Lab Data Lab results reviewed: Yes I reviewed the patient's lab results. Orders (Tests/Meds): ED MEDICATIONS Discontinued Medications Generic Name Dose Route Start Last Admin Trade Name Freq PRN Reason Stop Dose Admin Acetaminophen 1,000 mg 07/14/24 03:15 07/14/24 03:44 Acetaminophen 500mg Tab PO 07/14/24 03:16 1,000 mg ONCE ONE Administration Fentanyl Citrate 75 mcg 07/14/24 04:07 07/14/24 04:16 Fentanyl 100mcg/2ml Vial IV 07/14/24 04:08 75 mcg ONCE ONE Administration Tramadol HCl 50 mg 07/14/24 05:24 07/14/24 05:35 Tramadol 50mg Tablet PO 07/14/24 05:25 50 mg ONCE ONE Administration ORDERS Category Date Time Status Ankle XR - Left minimum 3 Views [XR ankle LT min 3V] Exams 07/14/24 03:15 Completed Stat Chest XR -- portable [XR chest portable] Stat Exams 07/14/24 03:15 Completed Fibula/tibia XR left 2 views [XR tibia fibula LT 2V] Exams 07/14/24 03:15 Com pleted Stat Foot XR left 2 views [XR foot LT 2V] Stat Exams 07/14/24 03:15 Completed Knee XR right 3 views [XR knee RT 3V] Stat Exams 07/14/24 03:15 Completed Pelvis XR 1-2 views [XR pelvis 1-2V] Stat Exams 07/14/24 03:15 Completed Medical Decision Narrative: 29-year-old male without significant past medical history presents for a fall with right knee and left ankle pain.. History was obtained via interactive discussion with patient, EMS. On arrival, patient is [afebrile, hemodynamically stable, satting appropriately, alert, oriented x4, GCS 15], moving all extremities spontaneously. Full physical exam performed and significant for findings as documented above. Differential includes but is not limited to fracture dislocation neurovascular/ligamentous injury. Patient was given Toradol and fentanyl IV by EMS prior to arrival, he was given Tylenol on arrival for symptomatic management and correction of underlying abn ormalities. Workup initiated including radiographs of the chest, pelvis, right knee, left tib-fib foot ankle. On re-evaluation, patient [remains afebrile, HD stable.] Imaging independently interpreted by me and significant for minimally trimalleolar fracture of the left ankle, suggestion of calcaneal fracture as well, no evident trauma in the chest pelvis or right lower extremity.. See radiology read for full review of final results. Patient was given fentanyl and the leg was splinted in the posterior back slab with stirrups. Repeat neurovascular exam remains intact. Given patient history, exam and workup, patient's presentation most likely represents acute minimally displaced trimalleolar fracture of the left ankle, possible calcaneal injury. Patient was discharged with instructions to remain nonweightbearing and to call to follow-up with Dr. Jones's office to soon as possible. Procedures Risk/Benefits of Procedure(s) Were Explained: Yes Orthopedic Splinting/Casting Injury #1: Side: left Lower Extremity Injury Location: ankle Lower Extremity Immobilizer: posterior splint and stirrup splint Other Orthopedic Equipment: other (wheelchair) Post Cast/Splinting Neuro Status: intact and no change Post Cast/Splinting Vasc Status: intact and no change Critical Care Critical Care Time Critical Care Time: No
[2024-07-14] MEDS: ACETAMINOPHEN 500MG TAB 1000 MG PO (03:44)
[2024-07-14] MEDS: FENTANYL 100MCG/2ML VIAL 75 MCG IV (04:16)
[2024-07-14] MEDS: TRAMADOL 50MG TABLET 50 MG PO (05:35)
[2024-07-14 06:01] VITALS: BP 124/95; PULSE 99; RESP 20; TEMP 36.8; O2SAT 97
== END 2024-07-14 06:03 | disposition home or self-care (01) ==
PROVIDERS: Emergency Provider Emergency Medicine
DX: S82.852A Displaced trimalleolar fracture of left lower leg, initial encounter for closed fracture (principal); M25.572 Pain in left ankle and joints of left foot; M25.561 Pain in right knee; W01.0XXA Fall on same level from slipping, tripping and stumbling without subsequent striking against object, initial encounter; Y93.89 Activity, other specified; Y92.89 Other specified places as the place of occurrence of the external cause
CPT/HCPCS: 29515; 71045; 72170; 73562; 73590; 73610; 73620; 96374; 99283; J3010

== ENCOUNTER 2024-07-16 16:07 | Emergency (ER) | payer SELFPAY ==
[2024-07-16 16:19] VITALS: BP 136/99; PULSE 95; RESP 18; TEMP 36.9; O2SAT 100; BMI 38.0
--- NOTE | 2024-07-16 16:21 | ED_ITS ---
Discharge Plan Disposition Patient Disposition: Home, Self-Care Prescriptions Prescriptions: New methocarbamol 750 mg tablet 750 mg PO TID Qty: 90 0RF ketorolac 10 mg tablet 10 mg PO Q8H PRN (Reason: pain) 2 Days Qty: 7 0RF No Action pantoprazole 40 MG tablet,delayed release (DR/EC) 40 mg PO DAILY Qty: 30 0RF omeprazole 40 mg capsule,delayed release(DR/EC) 40 mg PO DAILY 14 Days Qty: 14 0RF ondansetron 4 mg tablet,disintegrating 4 mg PO Q8H PRN (Reason: nausea and vomiting) Qty: 10 0RF hydrocodone-acetaminophen 5-325 mg tablet 1 tab PO Q6H PRN (Reason: pain) Qty: 10 0RF tramadol 50 mg tablet 50 mg PO Q6H PRN (Reason: pain) Qty: 12 0RF Referrals Follow up/Referrals: Provider,Referral, MD [Primary Care Provider] - See instructions Clinical Impressions Clinical Impression: Ankle pain, left Print Language Print Language: Brazilian Discharge ED Provider: Martin Gama General Adult HPI General Chief complaint: PAIN Stated complaint: Broken left leg,now swelling and cast rubbing leg Time Seen by Provider: 07/16/24 16:21 History of Present Illness HPI narrative: Patient is a 29-year-old male no past medical history presenting for left foot pain. According to patient 2 days ago he fell landing on his left side and had severe left ankle pain. He was found to have a bimalleolar ankle fracture and was splinted here and discharged at that time. Patient saw his orthopedic physician yesterday who said that his splint looks good and had surgery scheduled for the end of the month. This morning when patient woke up he said that he had been sleeping in a weird position and noted that he had left-sided medial ankle pain. He has never had pain like this before, but does feel that it is similar to the pain he had when he had his fracture. Patient said that he has had some increased swelling of his left foot as well. At this time patient denies numbness, tingling, weakness, shortness of breath Related Data Previous Rx's ?Medication ?Instructions ?Recorded pantoprazole 40 mg tablet,delayed 40 mg PO DAILY #30 tabs 07/30/20 release omeprazole 40 mg capsule,delayed 40 mg PO DAILY 14 days #14 caps 08/08/22 release ondansetron 4 mg disintegrating 4 mg PO Q8H PRN nausea and 08/08/22 tablet vomiting #10 tabs hydrocodone 5 mg-acetaminophen 325 1 tab PO Q6H PRN pain #10 tabs 06/27/24 mg tablet tramadol 50 mg tablet 50 mg PO Q6H PRN pain #12 tabs 07/14/24 ketorolac 10 mg tablet 10 mg PO Q8H PRN pain 2 days #7 07/16/24 tabs methocarbamol 750 mg tablet 750 mg PO TID #90 tabs 07/16/24 Allergies Allergy/AdvReac Type Severity Reaction Status Date / Time Penicillins Allergy Unknown Verified 07/15/24 14:44 allergy reaction [facility] Disclaimer: The information contained in this section may have been updated after the patient was seen, as this information can be updated by other users. Medical History No significant past medical history Social History Smoking Status: Current every day smoker second hand exposure: Yes alcohol intake: current alcohol intake frequency: a few times a month current occupational status: employed Travel in the last 8 weeks: None Have you lived/traveled outside [place] in past 30 days?: No Contact w/someone who lives/traveled outside US past 30 days?: No Exposure to someone with infectious disease in past 14 days?: No Do you have a fever (greater than 100.4 F or 38 C)?: No Have you tested positive for COVID-19: No Exposed to someone with COVID-19 in past 14 days?: No Do you have a sore throat?: No Do you have a cough?: No Do you have any weakness?: No Do you have any diarrhea?: No Are you experiencing any unusual bleeding?: No Do you have any muscle aches/pain?: No Do you have any abdominal pain?: No Are you experiencing loss of taste or smell?: No Other Medical History Have you received the Flu Vaccine for this season: No Have you received the Pneumonia Vaccine: No ROS Obtained: Yes All systems reviewed & no additional complaints except as documented Physical Exam General General appearance: alert and in no apparent distress Head Head exam: atraumatic and normocephalic Eye Eye exam: Present normal appearance Neck Neck exam: Present normal inspection Chest Chest inspection: Present normal inspection and symmetric chest wall rise Respiratory Respiratory exam: Present normal lung sounds bilaterally Cardiovascular Cardiovascular exam: Present regular rate Extremities Exam Extremities exam: Present tenderness (Left ankle), joint swelling (Left ankle) and other (DP and TP pulses strong, able to wiggle toes without difficulty); Absent calf tenderness (Compartments soft) Neurological Exam Neurological exam: Present alert and oriented X3; Absent motor sensory deficit Skin Skin exam: Present other (Cap refill symmetric bilateral feet, abrasion to medial left foot and ecchymosis to posterior medial left foot) Medical Decision Making Medical Records Screening: Per USPSTF and CDC recommendations, given the prevalence of disease in our region, it is our hospital?s policy to screen for HIV and viral Hepatitis for all patients aged 18 and over and those with ongoing risk factors. Pranay Inquiry Pt receiving controlled substance: No Vital Signs: 07/16/24 16:19 07/16/24 17:00 07/16/24 17:54 Temperature 98.5 F 98.5 F Temperature Source Oral Pulse Rate 94 H 86 Pulse Rate [Right Radial] 95 H Respiratory Rate 18 18 Blood Pressure 115/77 126/84 Blood Pressure [Right Arm] 136/99 H Blood Pressure Mean 98 Blood Pressure Mean [Right Arm] 111 02 Sat by Pulse Oximetry 100 98 Oxygen Delivery Method Room Air Room Air Room Air Orders (Tests/Meds): ED MEDICATIONS Discontinued Medications Generic Name Dose Route Start Last Admin Trade Name Joseq PRN Reason Stop Dose Admin Acetaminophen 1,000 mg 07/16/24 16:27 07/16/24 16:35 Acetaminophen 500mg Tab PO 07/16/24 16:28 1,000 mg ONCE ONE Administration Ketorolac Tromethamine 15 mg 07/16/24 16:27 07/16/24 16:36 Ketorolac 30mg/Ml Vial IM 07/16/24 16:28 15 mg ONCE ONE Administration Methocarbamol 1,000 mg 07/16/24 16:29 07/16/24 16:36 Methocarbamol 500mg Tablet PO 07/16/24 16:30 1,000 mg ONCE ONE Administration Oxycodone HCl 10 mg 07/16/24 16:28 07/16/24 16:36 Oxycodone 5mg Immediate Release Tablet PO 07/16/24 16:29 10 mg ONCE ONE Administration Medical Decision Narrative: In summary, this 29-year-old male presents to the emergency department today with ankle pain. On initial evaluation patient is hemodynamically stable alert and in no acute distress. Patient's splint was taken off and his pain immediately improved. He has abrasions and ecchymosis to his medial ankle. This may be due to the increased swelling of his foot over the last 2 days and the splint being tight. He is neurovascularly intact and his compartments are soft. Patient said that he has nonweightbearing since this injury. He has had no shortness of breath or chest pain and has no pain distal to his left ankle. differential diagnosis includes but is not limited to splint malfunction, compartment syndrome, worsening fracture. Based on these concerns, I deferred labs and imaging due to his pain significantly improving with removal of his splint.. On reassessment patient's pain significantly improved, splint reapplied to his left ankle. I discussed with patient that he will need to follow-up with his orthopedic doctor and come back if he starts to have worsening pain. Reassessment physical exam with splint on he was able to wiggle his toes and was neuro intact. Likely his pain was from the splint being too tight. Patient's prescriptions were reviewed and given Robaxin and Toradol. Also discussed that he will need to stop taking the tramadol as it has not been he lping him. Also discussed taking Tylenol every 6 hours. Otherwise patient given strict return precautions, all questions answered, patient discharged in stable condition. Of note, social determinants of health include low health literacy. Critical Care Critical Care Time Critical Care Time: No
[2024-07-16] MEDS: ACETAMINOPHEN 500MG TAB 1000 MG PO (16:35)
[2024-07-16] MEDS: OXYCODONE 5MG IMMEDIATE RELEASE TABLET 10 MG PO (16:36)
[2024-07-16] MEDS: METHOCARBAMOL 500MG TABLET 1000 MG PO (16:36)
[2024-07-16] MEDS: KETOROLAC 30MG/ML VIAL 15 MG IM (16:36)
[2024-07-16 17:00] VITALS: BP 115/77; PULSE 94; O2SAT 98
--- NOTE | 2024-07-16 17:19 | PC.NURSE ---
splint was re-done and pt reports it feels much better. no other complaints at this time
[2024-07-16 17:54] VITALS: BP 126/84; PULSE 86; RESP 18; TEMP 36.9; O2SAT 99
== END 2024-07-16 17:55 | disposition home or self-care (01) ==
PROVIDERS: Emergency Provider Student in an Organized Health Care Education/Training Program
DX: M25.572 Pain in left ankle and joints of left foot (principal); M79.672 Pain in left foot; R22.42 Localized swelling, mass and lump, left lower limb
CPT/HCPCS: 96372; 99283; J1885

== ENCOUNTER 2024-07-26 09:48 | Day surgery (SDC) | payer OTHER, SELFPAY ==
[2024-07-23 13:46] VITALS: BMI 38.0
[2024-07-26] VITALS (9 sets, daily range): BP systolic 123–161; BP diastolic 61–107; PULSE 75–103; RESP 15–22; TEMP 36.1–37.2; O2SAT 94–99
--- NOTE | 2024-07-26 10:35 | EXP.ANES.CKL ---
[facility] Disclaimer: The information contained in this section may have been updated after the patient was seen, as this information can be updated by other users. Medical History Anxiety Depression Hyperlipidemia History of gastroesophageal reflux (GERD) Allergies Palpitations Surgical History No significant past surgical history Family History Other No significant family history Social History (Updated 07/26/24 @ 10:11 by Ivis Freitas RN) Smoking Status: Current every day smoker second hand exposure: Yes alcohol intake: current alcohol intake frequency: a few times a month substance use type: marijuana current occupational status: employed and unemployed Travel in the last 8 weeks: None [facility] Anesthesia Checklist Patient Identification Patient Identification: Arm Band, Family and Verbal (Name & ) Structural Data Admitted From: Home Planned Operative Procedure/s: ORIF Left Ankle fracture Consent for Planned Operative Procedure(s) Verified: Yes Verified Documents: Surgical Consent and History and Physical NPO Status Verified Time NPO: 21:00 Chart Verification Results Verified: CBC, BMP, ECG and Chest Xray Additional verifications Patient : No Anesthesia Reactions: No Hx Blood Transfusions: No Blood Transfusion Reaction: No Cardiovascular Assessment Heart Sounds: S1 & S2 Pulse Rhythm: Irregular Peripheral Edema: No Airway Assessment Mallampati Score:: Class III C-Spine Mobility Assessed: Yes TMJ Mobility Assessed: Yes Dentition: Good Dentition Neurological Assessment Level of Consciousness: Awake, Alert, Appropriate and Follows Commands Hx Seizures: No Numbness or tingling in extremities: No Anesthesia Plan Anesthesia Risk discussed: Yes Anesthesia Plan: Verified ASA Class: III Anesthesia Type: General w/block
[2024-07-26] MEDS: CLINDAMYCIN PHOSPHATE/D5W 900 MG/50 ML PIGGYBACK 100 MG IV (13:30)
--- NOTE | 2024-07-26 15:22 | XR_ITS ---
FINAL REPORT CLINICAL HISTORY: left ankle ORIF COMPARISON: None FINDINGS: FLUOROSCOPY LESS THAN 1 HOUR HISTORY: FINDINGS: Fluoroscopic guidance was provided for ORIF left ankle. 3 spot films obtained. 1.3 minutes of fluoroscopy time were used, with a total dosage of 3.26 mGy. IMPRESSION: As above. Reviewed, Interpreted and Dictated by Carmen Garcia MD Transcribed by America Osborne Authenticated and . [facility]
--- NOTE | 2024-07-26 15:59 | EXP.ANES.I ---
[facility] Anesthesia Record Part I Anesthesia Record I Intake, IV Amount: 500 Hydration: Adequate Estimated blood loss (mL): 10 Urine output (mL): 0 Blood Products used (#): none Blood Pressure: 149/107 SaO2: 97 Pulse Rate: 103 Airway Patency: Patent Respiratory Rate: 22 Temperature: 96.9 F Patient is:: Awake (Talking) and Stable Stable to PACU at:: 15:57
--- NOTE | 2024-07-26 16:01 | P.OP_ITS ---
Date of procedure: 07/26/24 Pre-op Diagnosis:: Left bimalleolar ankle fracture Post-op Diagnosis:: Left trimalleolar ankle fracture with nondisplaced posterior malleolus fragment and syndesmotic tear Procedure performed:: 1. Open reduction internal fixation left trimalleolar ankle fracture without fixation of posterior malleolus fragment 2. Left ankle repair syndesmosis Surgeon:: Thai Jones DO DEFENSIVE SECONDARY COACH:: Lana Gee Anesthesia: GETA and regional Estimated blood loss (mL): 5 Operative findings:: Interoperative findings of small nondisplaced posterior lip fracture of the posterior malleolus as well as syndesmotic injury Operative note:: Patient notified preoperatively. Left ankle marked with yes my initials. Underwent a block with anesthesia. Then transferred to operative suite and placed both operating bed. General anesthesia was administered and the airway was secured. Left lower extremity then prepped and draped in normal sterile fashion. Once prepped and draped final operative timeout performed to identify proper patient procedure and extremity. Everyone involved in the case agreed. There were no counter indications to beginning. He did receive preoperative antibiotics. X-ray was brought into evaluate the fracture of the ankle marking pen was used to yousif the bony landmarks of the ankle and fracture site. There is a long oblique fracture of the fibula and medial malleolus fragment present. Also intraoperative examination with flexion extension of the AP and lateral views reveal a small posterior malleolus fracture that which is nondisplaced. Esmarch used exsanguinate the extremity pneumatic tourniquet inflated to 300 mmHg. Skin knife was used incise the skin dissection is taken down to identify the fracture site. The fracture site was cleaned. This is a long oblique fracture. Once the fracture site was cleaned and the edges were reduced with a lobster claw and [id number] clamp a lag screw was placed from anterior to posterior in nature to lag the fragments together then the plate was selected from the Arthrex fibula plate set proximally cortical screws were placed distally locking screws were placed and syndesmosis was tested interoperatively there was slight gapping of the syndesmosis therefore attention was brought to repair of the syndesmosis with tight rope fixation. Using the tight rope fixation the guidewire was placed through all 4 cortices of the fibula and the tibia and x-rays were reviewed to show proper placement of the guidewire this was followed by the cannulated drill bit which was also drilled all 4 cortices the tight rope mechanism was then placed across all 4 cortices and the button was deployed on the medial aspect the tibia side. Tight rope was then tightened under direct visualization on the x-ray for proper fixation of the syndesmosis. Interoperative imaging AP and lateral view showed a small posterior lip of the posterior malleolus which was nondisplaced and fixation was not indicated Attention was then brought to the medial ankle once the tight rope was in place and the plate was then placed the fracture reduced the medial malleolus fragment also reduced. A guidewire was then placed through the medial malleolus fragment to hold in place and then 2 additional K wires for the cannulated screws were utilized. They were overdrilled. And 4.0 mm cannulated screws were placed the medial malleolus fragment. Irrigation performed the lateral incision deep layers closed with 0 Vicryl subtendinous 2-0 Vicryl 3-0 nylon the skin for closure and 3-0 nylon in the skin for closure of the medial aspect of the ankle sterile dressing placed posterior splint placed patient waken anesthesia taken recovery stable condition. Condition: stable Disposition: PACU Complications:: None apparent
[2024-07-26] MEDS: KETOROLAC 30MG/ML VIAL 30 MG IV (16:05)
[2024-07-26] MEDS: HYDROMORPHONE 2MG/ML SYRINGE 0.3 MG IV ×2 (16:08→16:20)
--- NOTE | 2024-07-27 08:56 | P.PNANES_ITS ---
[facility] Anesthesia Record Part II Anesthesia Record Part II Discharge Time: 16:28 Destination: Surgical Day Care (OP Surgery) PACU nurse assessment reviewed?: Yes Patient Condition:: Good Anesthesia Complications:: None Swallowing reflex intact?: Yes Airway Patency: Patent Cyanosis?: No Blood Pressure: 123/68 SaO2: 95 Respiratory Rate: 17 Pulse Rate: 87 Temperature: 98 F Mental Status: Alert & Oriented Pain level:: 6 Nausea and/or vomitting:: None Intake, IV Amount: 500 Hydration: Adequate
[2024-07-27 08:58] VITALS: BP 123/68; PULSE 87; RESP 17; TEMP 36.6; O2SAT 95
== END 2024-07-26 17:05 | disposition home or self-care (01) ==
PROVIDERS: Visit Provider Orthopaedic Surgery
PROC: (CPT 27822; principal; 2024-07-26 11:45)
DX: S82.855A Nondisplaced trimalleolar fracture of left lower leg, initial encounter for closed fracture (principal); F17.210 Nicotine dependence, cigarettes, uncomplicated; W01.0XXA Fall on same level from slipping, tripping and stumbling without subsequent striking against object, initial encounter; S93.432A Sprain of tibiofibular ligament of left ankle, initial encounter
CPT/HCPCS: 27822; 27829; 73610; 76000; 96374; C1713; C1776; J0736; J1100; J1171; J1885; J2250; J2405; J3010

== ENCOUNTER 2024-08-11 14:48 | Outpatient (CLI) | payer OTHER, SELFPAY ==
--- NOTE | 2024-08-11 14:54 | XR_ITS ---
FINAL REPORT CLINICAL HISTORY: ORIF Left ankle COMPARISON: Report dated 07/14/2024 FINDINGS: Left ankle Three views were obtained. Patient is status post ORIF changes of the distal fibular and medial malleolar fractures. There is a nondisplaced posterior malleolar fracture without associated hardware. Medial malleolar fracture remains faintly evident. The ankle mortise is intact. IMPRESSION: Post-ORIF changes with fracture lines evident. Reviewed, Interpreted and Dictated by Aramis Sahni MD Transcribed by Brenda Laguerre Authenticated and [facility]
--- NOTE | 2024-08-11 14:54 | XR_ITS ---
FINAL REPORT CLINICAL HISTORY: left hand fx COMPARISON: Report dated 06/27/2024 FINDINGS: Left hand Three views were obtained. There is an oblique fracture with minimal displacement of the anterolateral tuft of the fourth distal phalanx. No bony union is identified. The joints are intact. No foreign body is seen. 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 Reviewed, Interpreted and Dictated by Aramis Sahni MD Transcribed by Brenda Laguerre Authenticated and [facility]
== END 2024-08-11 23:59 | disposition home or self-care (01) ==
LOC: RAD 14:51
PROVIDERS: Visit Provider Orthopaedic Surgery
DX: M25.572 Pain in left ankle and joints of left foot (principal); S62.307A Unspecified fracture of fifth metacarpal bone, left hand, initial encounter for closed fracture
CPT/HCPCS: 73130; 73610

== ENCOUNTER 2024-08-16 18:42 | Emergency (ER) | payer OTHER, SELFPAY ==
[2024-08-16 18:41] VITALS: BP 146/84; PULSE 88; RESP 18; TEMP 36.8; O2SAT 98; BMI 38.0
--- NOTE | 2024-08-16 18:42 | PC.NURSE ---
DR CRUZ AND DR MEDINA AT BEDSIDE
--- NOTE | 2024-08-16 18:46 | ED_ITS ---
Discharge Plan Disposition Patient Disposition: Home, Self-Care Prescriptions Prescriptions: No Action tramadol 50 mg tablet 50 mg PO Q8H PRN (Reason: post op pain) Qty: 40 0RF pantoprazole 40 MG tablet,delayed release (DR/EC) 40 mg PO DAILY Qty: 30 0RF omeprazole 40 mg capsule,delayed release(DR/EC) 40 mg PO DAILY 14 Days Qty: 14 0RF methocarbamol 750 mg tablet 750 mg PO TID Qty: 90 0RF ketorolac 10 mg tablet 10 mg PO Q8H PRN (Reason: pain) 2 Days Qty: 7 0RF Activity Restrictions/Add. Instructions Additional Instructions/Restrictions: Call your family doctor to establish care for this visit to the emergency department and schedule follow-up within 48 hours to ensure improvement. If you have any worsening of your condition or any other concerning signs or symptoms, return to the emergency department or your primary care doctor for further evaluation. Follow-up as scheduled. Remain nonweightbearing Clinical Impressions Clinical Impression: Leg pain, left, Post-operative pain Print Language Print Language: Iraqi Discharge ED Provider: Dank Vickers General Adult HPI General Stated complaint: LEFT LEG PAIN Time Seen by Provider: 08/16/24 18:43 History of Present Illness HPI narrative: Please note that above description of symptoms, in this electronic medical record under categorization of recalled from ER triage doctor by RN are reflective of an initial nursing assessment, however, is not reflective of my full history and physical exam that was personally taken and clarified. Consequentially, this preceding description of symptoms, which may include the patient's categorized chief complaint in the EMR, do not reflect my personal clinical impression, and the ultimate description of history of present illness and patient stated complaints should be deferred to this section of the note. Unless stated otherwise or congruent with this section of the note, additional signs, symptoms, or incongruence should be interpreted as inaccurate with my clinical impression. Related Data Previous Rx's ?Medication ?Instructions ?Recorded pantoprazole 40 mg tablet,delayed 40 mg PO DAILY #30 tabs 07/30/20 release omeprazole 40 mg capsule,delayed 40 mg PO DAILY 14 days #14 caps 08/08/22 release ketorolac 10 mg tablet 10 mg PO Q8H PRN pain 2 days #7 07/16/24 tabs methocarbamol 750 mg tablet 750 mg PO TID #90 tabs 07/16/24 tramadol 50 mg tablet 50 mg PO Q8H PRN post op pain #40 08/12/24 tabs Allergies Allergy/AdvReac Type Severity Reaction Status Date / Time amoxicillin Allergy Hives Verified 08/11/24 13:54 Penicillins Allergy Hives Verified 08/11/24 13:54 [facility] Disclaimer: The information contained in this section may have been updated after the patient was seen, as this information can be updated by other users. Medical History Anxiety Depression Hyperlipidemia History of gastroesophageal reflux (GERD) Allergies Palpitations Surgical History No significant past surgical history Family History Other No significant family history Social History Smoking Status: Current every day smoker second hand exposure: Yes alcohol intake: current alcohol intake frequency: a few times a month substance use type: marijuana current occupational status: employed and unemployed Travel in the last 8 weeks: None Other Medical History Have you received the Flu Vaccine for this season: No Have you received the Pneumonia Vaccine: No ROS Obtained: Yes All systems reviewed & no additional complaints except as documented Physical Exam General General appearance: alert Head Head exam: atraumatic and normocephalic Eye Eye exam: Present normal appearance, PERRL and EOMI Neck Neck exam: Present normal inspection, full ROM and trachea midline Respiratory Respiratory exam: Absent respiratory distress, wheezes, stridor, accessory muscle use or prolonged expiratory phase Cardiovascular Cardiovascular exam: Present other (Pulses equal symmetric in upper and lower extremities) Abdominal Exam Abdominal exam: Present soft; Absent distention, tenderness or pulsatile mass Extremities Exam Extremities exam: Absent edema Neurological Exam Neurological exam: Present alert, oriented X3 and CN II-XII intact; Absent motor sensory deficit Skin Skin exam: Present warm and dry; Absent diaphoresis or erythema Medical Decision Making Medical Records Medical records reviewed: Yes I reviewed the patient's medical records. Screening: Per USPSTF and CDC recommendations, given the prevalence of disease in our region, it is our hospital?s policy to screen for HIV and viral Hepatitis for all patients aged 18 and over and those with ongoing risk factors. Pranay Inquiry Pt receiving controlled substance: No Pranay was queried for this patient: No Medical Decision Narrative: 29-year-old male recent history of Tri malleoli fracture of his left lower extremity presenting with concern for potential compartment syndrome of his left lower extremity. Patient had surgery on 07/26. Had stitches removed 6 days prior to this. States that he started having significant pain in the posterior aspect of his left calf. Went to outside ED. At outside ED, physician had clinical concern for compartment syndrome, so EMS transferred patient here for further evaluation. I spoke to the ED provider, Dr Courtney as well as orthopedics here, Dr. Jones regarding this patient. On arrival, patient states that he feels pretty okay at rest. States that his toes feel cold and fuzzy, , but no general numbness, significant pain. He states that most of his pain is when he ranges his toes and ankles up in dorsiflexion. Shoots up the back of his calf into his posterior left knee. No discoloration, or any other concerns including infection etc. History was obtained via conversation with patient, EMS, outside provider, orthopedics. On arrival, patient hemodynamically stable, alert, oriented x4, appropriate, GCS 15, moving all extremities spontaneously, pupils equal and reactive to light. Full physical exam performed and si gnificant for very well-appearing male no acute distress. Able to range ankle in dorsiflexion and plantarflexion without issue. States that when he ranges in dorsiflexion it is much more painful. On passive range of motion, causes mild to moderate pain, but patient states that it is not intolerable. Compartments are soft. He does have good pulses and good capillary refill distally. Surgical site without concern for infection. Differential includes postop swelling, hardware failure, compartment syndrome, DVT, among others. Workup from previous ED was independently interpreted. CK negative at 95, DVT ultrasound negative for any acute deep venous thrombosis. Labs unremarkable. X-rays of the lower extremity without evidence of hardware failure. Orthopedics was consulted and visited patient in the emergency department, agrees with assessment and agreeable outpatient management given negative workup and no clinical concern for compartment syndrome on exam. Because patient at baseline without signs or symptoms of clinical decompensation, deemed appropriate for discharge. Results were relayed to patient who voiced understanding and were agreeable to outpatient management and follow up. I discussed my clinical impression with patient and answered all questions. At this time, the evidence for any other entities in the differential is insufficient to warrant any further testing or ED observation. This was explained as well. Advisory was given that persistent or worsening symptoms require further evaluation. I confirmed the understanding of this discussion. Call Or Contact Centre Manager disclaimer Much of this encounter note is an electronic assembler trim spoken language to printed text. Electronic assembler trim of the spoken language may permit errors. Although I have reviewed the note, some errors may still exist. Critical Care Critical Care Time Critical Care Time: No
[2024-08-16 19:03] VITALS: BP 130/79; PULSE 80; RESP 20; TEMP 36.8; O2SAT 96
== END 2024-08-16 19:04 | disposition home or self-care (01) ==
PROVIDERS: Emergency Provider Emergency Medicine
DX: M79.605 Pain in left leg (principal); G89.18 Other acute postprocedural pain; Z72.0 Tobacco use
CPT/HCPCS: 99284

== ENCOUNTER 2024-09-09 13:25 | Outpatient (CLI) | payer OTHER, SELFPAY ==
--- NOTE | 2024-09-09 13:29 | XR_ITS ---
FINAL REPORT CLINICAL HISTORY: Left hand fx fall, mid may per pt-fx of 5th metacarpal COMPARISON: 08/11/2024 FINDINGS: LEFT HAND Three views demonstrate no acute fracture or dislocation, specifically fifth metacarpal is unremarkable. There is an old fracture of the tuft of the fourth distal phalanx. IMPRESSION: No acute bony abnormality. Reviewed, Interpreted and Dictated by Aramis Sahni MD Transcribed by Lyric Velásquez Authenticated and [facility]
--- NOTE | 2024-09-09 13:29 | XR_ITS ---
FINAL REPORT CLINICAL HISTORY: lt ankle pain surgery Jul 26, 2024 COMPARISON: 08/11/2024 FINDINGS: LEFT ANKLE Three views demonstrate post ORIF of the distal fibula and medial malleolus. Fracture line of the medial malleolus is less evident than on prior exam consistent with healing fracture. Fibular fracture is less evident on the lateral view. No new fracture is identified. No further displacement is seen. IMPRESSION: Multiple, partial healing fractures without further displacement. Reviewed, Interpreted and Dictated by Aramis Sahni MD Transcribed by Lyric Velásquez Authenticated and [facility]
== END 2024-09-09 23:59 | disposition home or self-care (01) ==
LOC: RAD 13:27
PROVIDERS: Visit Provider Orthopaedic Surgery
DX: M25.572 Pain in left ankle and joints of left foot (principal); S62.307A Unspecified fracture of fifth metacarpal bone, left hand, initial encounter for closed fracture
CPT/HCPCS: 73130; 73610

== ENCOUNTER 2024-09-21 15:04 | Outpatient (CLI) | payer OTHER, SELFPAY ==
--- NOTE | 2024-09-21 15:08 | XR_ITS ---
FINAL REPORT CLINICAL HISTORY: Left ankle pain COMPARISON: None FINDINGS: 3 views of the left ankle reveal post-ORIF changes of the medial malleolus and the distal fibula. The fracture line and the medial malleolus is less evident, indicating healing. A nondisplaced posterior malleolus fracture is present as well. The oblique fracture of the distal fibula is unchanged in appearance. IMPRESSION: Postoperative changes as described above, without displacement of hardware or new bony abnormality. Reviewed, Interpreted and Dictated by Aramis Sahni MD Transcribed by America Osborne Authenticated and [facility]
== END 2024-09-21 23:59 | disposition home or self-care (01) ==
LOC: RAD 15:06
PROVIDERS: Visit Provider Physician Assistant
DX: M25.572 Pain in left ankle and joints of left foot (principal)
CPT/HCPCS: 73610

== ENCOUNTER 2024-10-14 14:09 | Outpatient (CLI) | payer OTHER, SELFPAY ==
--- NOTE | 2024-10-14 14:12 | XR_ITS ---
FINAL REPORT CLINICAL HISTORY: lt ankle pain COMPARISON: 09/21/2024 FINDINGS: LEFT ANKLE Three views were obtained. There are post-ORIF changes of the medial malleolus and distal fibula. No residual fracture line is identified. The bones are mildly osteopenic. The previously seen fracture lines of the posterior malleolus and fibula on the lateral view is much less evident. IMPRESSION: Radiographic evidence of healing fracture. No new abnormality. Reviewed, Interpreted and Dictated by Aramis Sahni MD Transcribed by Brenda Laguerre Authenticated and [facility]
== END 2024-10-14 23:59 | disposition home or self-care (01) ==
LOC: RAD 14:11
PROVIDERS: PCP Emergency Medicine; Visit Provider Orthopaedic Surgery
DX: M25.572 Pain in left ankle and joints of left foot (principal)
CPT/HCPCS: 73610

== ENCOUNTER 2025-04-03 17:54 | Emergency (ER) | payer OTHER, SELFPAY ==
--- OUTSIDE RECORDS SUMMARY | 2025-03-03 13:01 | XMS_ITS | Encounter Summary ---
Author Organization [employer] ([place], [place], [place], [place]) Address [address] [place] [address] Care Team Providers Care Slag Expander Name Role Phone [facility] Connection, Find-A-Doc Primary Care Provider Reason for Visit * Reason Comments Near Syncope Pt reports multiple complaints: lightheadedness, vertigo, weird , anxious, with multiple additional complaints x1 experience today. Pt has experienced increased stress and decreased PO intake. No recent trauma, illness. Encounter Details Date Type Department Care Team (Late st Contact Info) Description 03/03/2025 1:01 PM EDT - 03/03/2025 2:32 PM EDT Emergency [facility] Emergency Department [address] [place] [phone] Rob Rene, DO [address] [place] [id number] Near syncope (Primary Dx); Palpitations; Anxiety Discharge Disposition: Home or Self Care Social History Tobacco Use Types Packs/Day Years Used Date Smoking Tobacco: Every Day Cigarettes 0.5 14.7 Started: 2010 Smokeless Tobacco: Never Alcohol Use Standard Drinks/Week Comments Yes 0 (1 standard drink = 0.6 oz pur e alcohol) Family and Community Support Answer Nick e Recorded Help with Day to Day Activities Not on file 08/16/2023 Feeling Lonely or Isolated Not on file 08/16 Educational Attainment Answer Date Jeronimo rded Speak language other than Indonesian at home Not on file 08/16/2023 Want help with school or training Not on file 08/16/2023 Substance Use Answer Date Recorded Used prescription meds for non-medical reasons N ot on file 08/16/2023 Used illegal drugs past 12 months Not on file 08/16/2023 Sex and Gender Information Value Date Recorded Sex Assigned at Not on file Legal Sex Male 7:27 PM [employer] Gender Identity Not on file Sexual Orientation Not on file documented as of this encounter Last Filed Vital Signs Vital Sign Reading Time Taken Comments Blood Pressure 157/87 03/03/2025 1:17 PM EDT Pulse 92 03/03/2025 1:17 PM EDT Temperature 36.7 C (98.1 F) 03/03/2025 1:07 PM EDT Respiratory Rate 18 03/03/2025 1:07 PM EDT Oxygen Saturation 97% 03/03/2025 1:17 PM EDT Inhaled Oxygen Concentration - - Weight 115.7 kg (255 lb) 03/03/2025 1:07 PM EDT Height 182.9 cm (6') 03/03/2025 1:07 PM EDT Body Mass Index 34.58 03/03/2025 1:07 PM EDT documented in this encounter Discharge Instructions * Discharge Instructions* Nel Mckeon NP - 03/03/2025 2:22 PM EDT Take medications as needed. Return to emergency department for new or worse symptoms. Please follow-up with primary care provider within the next 2 to 3 days as discussed for recheck * Attachments The following attachments cannot be sent through Care Everywhere. * Managing Anxiety Adult (Indonesian) * Near-Syncope [id number] (Indonesian) * Palpitations Wman-ny-Rldr (Indonesian) documented in this encounter Medications at Time of Discharge diazePAM (VALIUM) 5 MG tablet Take 1 tablet (5 mg total) by mouth. 11/28/2024 LORazepam (ATIVAN) 1 MG tablet Take 1 tablet (1 mg total) by mouth every 6 (six) hours as needed for Anxiety for up to 6 doses. Max Daily Amount: 4 mg 6 tablet 01/09/2024 omeprazole (PriLOSEC) 40 MG capsule Take 1 capsule (40 mg total) by mouth daily. hydrOXYzine (ATARAX) 25 MG tablet Take 1 tablet (25 mg total) by mouth every 8 (eight) hours as needed for anxiety for up to 10 days Look-alike/ Sound-alike medication. 30 tablet 03/03/2025 03/13/2025 documented as of this encounter ED Notes * Nel Mckeon, CARTRIDGE LOADING OPERATOR - 03/03/2025 1:11 PM EDT Subjective Chief Complaint: Near Syncope (Pt reports multiple complaints: lightheadedness, vertigo, weird , anxious, with multiple additional complaints x1 experience today. Pt has experienced increased stressand decreased PO intake. No recent trauma, illness. ) 30-year-old male presents to the emergency department with complaints of lightheadedness. Patient reports he was at work today and began feeling lightheaded and anxious. He reports he felt like he was going to pass out. He did not pass out. He also reports over the past month he has had multiple natan oing issues to which she has not had resolution to. He reports he has had pain in his right ear, swollen lymph nodes, white tongue. He reports occasional nausea. Denies fever or chills. He denies vomiting, diarrhea, constipation. He reports today when he began feeling lightheaded and like he was going to pass out he had some tightness in the middle of his chest and associated shortness of breath.He reports palpitations as well. He denies any leg swelling. Denies abdominal pain. Denies genitourinary symptoms, dysuria, hematuria. He denies headache, syncope, numbness, tingling, visual change, visual loss, dysarthria. History provided by: Patient color adviser used: No Near Syncope Associated symptoms: chest pain, ear pain, nausea and shortness of breath Associated symptoms: no abdominal pain, no congestion, no cough, no diarrhea, no fever, no headaches, no sore throat and no vomiting Patient History Past Medical History: Diagnosis Date Anxiety Depression Panic attack No past surgical history on file. No family history on file. Social History Tobacco Use Smoking status: Every Day Current packs/day: 0.50 Average packs/day: 0.5 packs/day for 14.6 years (7.3 ttl pk-yrs) Types: Cigarettes Start date: 2010 Smokeless tobacco: Never Substance Use Topics Alcohol use: Yes I reviewed the HPI, ROS and PFSH documentation recorded by others in the medical record and supplemented my note as needed. Review of Systems Review of Systems Constitutional: Negative. Negative for chills and fever. HENT: Positive for ear pain. Negative for congestion, facial swelling, sinus pressure, sinus pain, sneezing, sore throat, trouble swallowing and voice change. Eyes: Negative for visual disturbance. Respiratory: Positive for chest tightness and shortness of breath. Negative for cough. Cardiovascular: Positive for chest pain, palpitations and near-syncope. Negative for leg swelling. Gastrointestinal: Positive for nausea. Negative for abdominal pain, constipation, diarrhea and vomiting. Genitourinary: Negative. Negative for dysuria and flank pain. Musculoskeletal: Negative. Negative for back pain, neck pain and neck stiffness. Skin: Negative. Neurological: Positive for light-headedness. Negative for dizziness, tremors, syncope, facial asymmetry, weakness, numbness and headaches. All other systems reviewed and are negative. Physical Exam ED Triage Vitals [03/03/25 1307] Encounter Vitals Group BP (!) 165/95 Systolic BP Percentile Diastolic BP Percentile Pulse 104 Resp 18 Temp 98.1 ??F (36.7 ??C) Temp src Temporal Art SpO2 96 % Weight 115.7 kg (255 lb) Height 1.829 m (6') Head Circumference Peak Flow Pain Score Zero Pain Loc Pain Education Exclude from Growth Chart Physical Exam Vitals and nursing note reviewed. Constitutional: General: He is not in acute distress. Appearance: Normal appearance. He is obese. He is not ill-appearing, toxic- appearing or diaphoretic. HENT: Head: Normocephalic and atraumatic. Right Ear: Tympanic membrane, ear canal and external ear normal. Left Ear: Tympanic membrane, ear canal and external ear normal. Nose: Nose normal. No congestion. Mouth/Throat: Mouth: Mucous membranes are moist. Tongue: Lesions present. Pharynx: Oropharynx is clear. No oropharyngeal exudate or posterior oropharyngeal erythema. Eyes: General: No visual field deficit. Extraocular Movements: Extraocular movements intact. Pupils: Pupils are equal, round, and reactive to light. Cardiovascular: Rate and Rhythm: Normal rate and regular rhythm. Pulses: Normal pulses. Heart sounds: Normal heart sounds. No murmur heard. Pulmonary: Effort: Pulmonary effort is normal. No respiratory distress. Breath sounds: Normal breath sounds. No stridor. No wheezing. Chest: Chest wall: No tenderness. Abdominal: General: Abdomen is flat. Bowel sounds are normal. There is no distension. Palpations: Abdomen is soft. Tenderness: There is no abdominal tenderness. There is no right CVA tenderness, left CVA tenderness, guarding or rebound. Musculoskeletal: General: Normal range of motion. Cervical back: Normal range of motion and neck supple. No rigidity or tenderness. Right lower leg: No edema. Left lower leg: No edema. Lymphadenopathy: Cervical: No cervical adenopathy. Skin: General: Skin is warm and dry. Capillary Refill: Capillary refill takes less than 2 seconds. Findings: No rash. Neurological: General: No focal deficit present. Mental Status: He is alert and oriented to person, place, and time. Mental status is at baseline. GCS: GCS eye subscore is 4. GCS verbal subscore is 5. GCS motor subscore is 6. Cranial Nerves: No cranial nerve deficit, dysarthria or facial asymmetry. Sensory: Sensation is intact. Motor: Motor function is intact. No weakness. Gait: Gait is intact. Gait normal. Psychiatric: Mood and Affect: Mood normal. Behavior: Behavior normal. Neurological Exam Mental Status Alert. Oriented to person, place, and time. no dysarthria present. Cranial Nerves CN III, IV, : Extraocular movements intact bilaterally. Pupils equal round and reactive to light bilaterally. Sensory Normal sensation. Gait Normal gait. Normal gait. Ortho Exam ED Course & MDM Medications sodium chloride 0.9% (NS) bolus (0 mLs intravenous Stopped 03/03/25 1422) potassium chloride (KLOR-CON) ER tablet 40 mEq (40 mEq oral Given 03/03/25 1420) Results for orders placed or performed during the hospital encounter of 03/03/25 CBC with Auto Diff Result Value Ref Range WBC 8.4 4.8 - 10.8 K/??L RBC 4.94 3.80 - 5.20 M/??L Hemoglobin 16.5 12.8 - 17.4 GM/DL Hematocrit 44.2 39.0 - 51.0 % MCV 90 81 - 101 fL MCH 33.4 27.0 - 34.0 pg MCHC 37.3 (H) 32.0 - 36.0 GM/DL RDW 13.2 11.5 - 14.5 % Platelets 232 150 - 400 K/CU MM MPV 9.9 9.4 - 12.4 fL Nucleated Red Blood Cell 0.0 0 - 0.2 % % Neutros 65 37 - 80 % % Lymphs 27 10 - 50 % % Monos 7 5 - 13 % % Eos 1 0 - 7 % % Baso 1 0 - 3 % NRBC Absolute <0.01 0 - 0.012 K/ul # Neutros 5.42 2.00 - 6.90 K/??L # Lymphs 2.24 0.60 - 3.40 K/??L # Monos 0.56 0.00 - 0.90 K/??L # Eos 0.04 0.00 - 0.70 K/??L # Baso 0.05 0.00 - 0.20 K/??L Immature Granulocytes-Relative 0.60 % # IG 0.05 (H) 0.00 - 0.00 K/uL Comprehensive metabolic panel Result Value Ref Range Sodium 137 136 - 145 meq/L Potassium 3.3 (L) 3.5 - 5.1 meq/L Chloride 102 98 - 107 meq/L CO2 27 21 - 32 meq/L Calcium 9.1 8.5 - 10.1 mg/dL Glucose 96 74 - 100 mg/dL BUN 6 (L) 7 - 18 mg/dL Creatinine 0.83 0.70 - 1.20 mg/dL BUN/Creatinine 7 Albumin 4.2 3.4 - 5.0 g/dL Alkaline Phosphatase 93 46 - 116 U/L ALT 57 12 - 78 U/L AST 44 (H) 15 - 37 U/L Total Bilirubin 0.7 0.2 - 1.0 mg/dL Protein, Total 7.8 6.4 - 8.2 gm/dL Anion Gap 11 11 - 22 A/G Ratio 1.2 Globulin 3.6 g/dL Osmolality Calc 271.3 mOsm/kg eGFR (mL/min/1.73m2) >60 >=60 mL/min/1.73m2 Lipase Result Value Ref Range Lipase 14 (L) 16 - 77 U/L Magnesium Result Value Ref Range Magnesium 1.8 1.8 - 2.4 mg/dL High Sensitivity Troponin I Result Value Ref Range Troponin I High Sensitivity (pg/mL) 5.2 4 - 60.3 pg/mL Urinalysis, Reflex Microscopic and Culture If Indicated Result Value Ref Range Color, UA Yellow Clarity, UA Clear Specific [place], UA 1.015 1.002 - 1.030 pH, UA 6.0 5.0 - 9.0 Leukocytes, UA Negative Negative Nitrite, UA Negative Negative Protein, UA Negative Negative Glucose, UA Negative Negative Ketones, UA Trace (A) Negative Bilirubin, UA Negative Negative Blood, UA Negative Negative Urobilinogen, UA 0.2 mg/dL Normal UA INDICATIONS Not indicated Specimen Source Urine, Voided D-dimer Result Value Ref Range D-Dimer, Quant (SJMS SJE) 279.29 <=500.00 ng/mL FEU XR chest 1 view portable / bedside (Results Pending) ED Course as of 03/03/25 1423 Stephany Mar 03, 2025 1327 EKG at 1318 read and interpreted by me: Normal sinus rhythm at 94 bpm. Normal axis. No ST elevation. Q waves in lead III. [DG] 1420 Dr. Rivas: I saw the patient [id number]. I performed a substantive portion of the MDM. [DG] ED Course User Index [DG] Rene Rivas, DO Procedures Medical Decision Making Patient initially presents with lightheadedness, chest pain, shortness of breath. On arrival patient in no apparent distress, anxious appearing. Vital signs are reassuring. Patient is alert and oriented x 4, GCS 15, neurologically intact. No focal neurological deficit present. Lungs clear bilaterally. Abdomen is soft and nontender, no guarding, rebound tenderness, rigidity. Will obtain labs, EKG,urinalysis, chest x-ray. Will obtain send out HIV testing as patient has had white tongue ongoing for a month now. EKG sinus rhythm, no STEMI. CBC nonactionable, urinalysis not indicative of urinary tract infection, troponin 5.2, lipase nonactionable, magnesium nonactionable, CMP reveals potassium 3.3 otherwise nonactionable. Patient given p.o. potassium replacement. Chest x-ray per my interpretation reveals no obvious acute process. D-dimer is nonactionable. Likelihood of pulmonary emboli is very low. Patient has remained hemodynamically stable in the emergency department. Discussed findingswith patient. Advised him that HIV testing is send out and we will call him with the results if positive. Patient request something for anxiety to take at home. Discussed that I will send hydroxyzineto take as needed. Advised him that he should follow-up with his primary care provider within the next 2 to 3 days for recheck and to discuss options for anxiety management. Advised patient return to emergency department for any new or worsening symptoms. Cautious return precautions were provided. Patient verbalized understanding and is agreeable to treatment plan. Amount and/or Complexity of Data Reviewed Labs: ordered. Decision-making details documented in ED Course. Radiology: ordered. Decision-making details documented in ED Course. ECG/medicine tests: ordered. Decision-making details documented in ED Course. Risk Prescription drug management. Assessment & Plan Clinical Impression Diagnosis Comment Added By Time Added Near syncope Nel Mckeon NP 03/03/2025 2:21 PM Palpitations Nel Mckeon NP 03/03/2025 2:21 PM Anxiety Nel Mckeon NP 03/03/2025 2:21 PM Disposition Discharge [1] - 03/03/2025 2:21 PM New Prescriptions HYDROXYZINE (ATARAX) 25 MG TABLET Take 1 tablet (25 mg total) by mouth every 8 (eight) hours as needed for anxiety for up to 10 days Look-alike/Sound-alike medication. Contact information for follow-up [facility] Find-a-Doc Relationship: PCP - General [facility] Find-a-Doc [facility] [id number] Next Steps: Schedule an appointment as soon as possible for a visit [facility] Emergency Department Specialty: Emergency Medicine [address] [place] [phone] Next Steps: Follow up Instructions: As needed, If symptoms worsen Associated attestation - Rene Rivas DO - 03/03/2025 3:[address] Rivas: I saw the patient [id number]. I performed a substantive portion of the MDM. documented in this encounter Plan of Treatment Not on file documented as of this encounter Procedures Procedure Name Priority Date/Time Associated Diagnosis Comments XR CHEST 1 VIEW PORTABLE / BEDSIDE STAT 03/03/2025 1:22 PM EDT CBC W/ AUTO DIFF STAT 03/03/2025 1:21 PM EDT URINALYSIS, REFLEX MICROSCOPIC AND CULTURE IF INDICATED STAT 03/03/2025 1:21 PM EDT HIV 1/2 AG/AB COMBO STAT 03/03/2025 1 :21 PM EDT HIGH SENSITIVITY TROPONIN I STAT 03/03/2025 1:21 PM EDT D-DIMER STAT 03/03/2025 1:21 PM EDT MAGNESIUM STAT 03/03/2025 1:21 PM EDT LIPASE STAT 03/03/2025 1:21 PM EDT COMPREHENSIVE METABOLIC PANEL STAT 03/03/2025 1:21 PM EDT FS_MODEL_IP_ECG 12-LEAD STAT 03/03/2025 1:18 PM EDT documented in this encounter Results * XR chest 1 view portable / bedside (03/03/2025 1:22 PM EDT) Anatomical Region Laterality Modality X-Ray 03/03/2025 3:02 PM EDT Impressions 03/03/2025 3:06 PM EDT No acute cardiopulmonary process. Images reviewed, interpreted, and dictated by Dr. Wilder Harrell. Transcribed by Vu Blood PA-C. Narrative 03/03/2025 3:06 PM EDT PORTABLE CHEST HISTORY: Vertigo. COMPARISON: 09/03/2023. FINDINGS: The heart is normal in size. The mediastinum is unremarkable. The lungs are clear. There is no pneumothorax. Procedure Note Phan Harrell MD - 03/03/2025 PORTABLE CHEST HISTORY: Vertigo. COMPARISON: 09/03/2023. FINDINGS: The heart is normal in size. The mediastinum is unremarkable. The lungs are clear. There is no pneumothorax. IMPRESSION: No acute cardiopulmonary process. Images reviewed, interpreted, and dictated by Dr. Wilder Harrell. Transcribed by Vu Blood PA-C. us Nelcrystal Mckeon CARTRIDGE LOADING OPERATOR IMG DIAGNOSTIC IMAGING ORDERAB LES Final Result * HIV 1/2 AG/AB Combo (03/03/2025 1:21 PM EDT) HIV-1 P24 Antigen Nonreactive Nonreactive 03/04/2025 12:58 AM EDT [facility] Blood Venipuncture / Unknown 03/03/2025 1:21 PM EDT 03/03/2025 1:27 PM EDT us Nel Mckeon CARTRIDGE LOADING OPERATOR LAB BLOOD ORDERABLES Final Res ult [facility] [address] [phone] * D-dimer (03/03/2025 1:21 PM EDT) D-Dimer, Quant (SJMS SJE) 279.29 <=500.00 ng/mL FEU 03/03/2025 2:12 PM EDT [facility] Comment: A normal D-dimer result <500 ng/mL (FEU) has a negative predictive value of approximately 95% for the exclusion of acute pulmonary embolism (PE) or deep vein thrombosis when there is low or moderate pretest PE probability. D-dimer Normal Rates First trimester: 50-950 ng/mL (FEU) Second trimester: 302-1290 ng/mL (FEU) Third trimester: 130-1700 ng/mL (FEU) Blood Venipuncture / Unknown 03/03/2025 1:21 PM EDT 03/03/2025 1:28 PM EDT us Nel Mckeon NP LAB BLOOD ORDERABLES Final Res ult [facility] [address] [place] [address], [facility] [phone] * (ABNORMAL) Urinalysis, Reflex Microscopic and Culture If Indicated (03/03/2025 1:21 PM EDT) Color, UA Yellow 03/03/2025 1:45 PM EDT [facility] Clarity, UA Clear 03/03/2025 1:45 PM EDT [facility] Specific [place], UA 1.015 1.002 - 1.030 03/03/2025 1:45 PM EDT [facility] pH, UA 6.0 5.0 - 9.0 03/03/2025 1:45 PM EDT [facility] Leukocytes, UA Negative Negative 03/03/2025 1:45 PM EDT [facility] Nitrite, UA Negative Negative 03/03/2025 1:45 PM EDT [facility] Protein, UA Negative Negative 03/03/2025 1:45 PM EDT [facility] Glucose, UA Negative Negative 03/03/2025 1:45 PM EDT [facility] Ketones, UA Trace(A) Negative 03/03/2025 1:45 PM EDT [facility] Bilirubin, UA Negative Negative 03/03/2025 1:45 PM EDT [facility] Blood, UA Negative Negative 03/03/2025 1:45 PM EDT [facility] Urobilinogen, UA 0.2 mg/dL Normal 03/03/2025 1:45 PM EDT [facility] UA INDICATIONS Not indicated 03/03/2025 1:45 PM EDT [facility] Specimen Source Urine, Voided 03/03/2025 1:45 PM EDT [facility] Urine URINE / Unknown 03/03/2025 1 :21 PM EDT 03/03/2025 1:27 PM EDT us Nel J Strange CARTRIDGE LOADING OPERATOR URINE ORDERABLES Final Result Performing Organization Address City/[facility]/ZIP Co de Phone Number [facility] [address] [phone] * High Sensitivity Troponin I (03/03/2025 1:21 PM EDT) Troponin I High Sensitivity (pg/mL) 5.2 4 - 60.3 pg/mL 03/03/2025 1:55 PM EDT [facility] Comment: Troponin Result (pg/mL) *Interpretation 4-60.3 *Normal; less than 99th percentile of normal range >60.3 *Abnormal; greater than 99th percentile of normal range Biotin specimen concentration >300 ng/mL may lead to falsely depressed results for patient samples. Do not use this test for renal dysfunction patients (eGFR <60) unless it is confirmed that the patient is not taking Biotin. Blood Venipuncture / Unknown 03/03/2025 1:21 PM EDT 03/03/2025 1:27 PM EDT us Nel J Strange CARTRIDGE LOADING OPERATOR LAB BLOOD ORDERABLES Final Res ult Performing Organization Address City/[facility]/ZIP Co de Phone Number [facility] [address] [phone] * Magnesium (03/03/2025 1:21 PM EDT) Magnesium 1.8 1.8 - 2.4 mg/dL 03/03/2025 1:55 PM EDT [facility] Blood Venipuncture / Unknown 03/03/2025 1:21 PM EDT 03/03/2025 1:27 PM EDT us Nel J Strange CARTRIDGE LOADING OPERATOR LAB BLOOD ORDERABLES Final Res ult [facility] [address] [place] [address], [facility] [phone] * (ABNORMAL) Lipase (03/03/2025 1:21 PM EDT) Lipase 14(L) 16 - 77 U/L 03/03/2025 1:55 PM EDT [facility] Blood Venipuncture / Unknown 03/03/2025 1:21 PM EDT 03/03/2025 1:27 PM EDT Nel Mckeon CARTRIDGE LOADING OPERATOR LAB BLOOD ORDERABLES Final Res ult Performing Organization Address City/[facility]/ZIP Co de Phone Number [facility] [address] [place] [address] * (ABNORMAL) Comprehensive metabolic panel (03/03/2025 1:21 PM EDT) [facility] Sodium 137 136 - 145 meq/L 03/03/2025 1:55 PM EDT [facility] Potassium 3.3(L) 3.5 - 5.1 meq/L 03/03/2025 1:55 PM EDT [facility] Chloride 102 98 - 107 meq/L 03/03/2025 1:55 PM EDT [facility] CO2 27 21 - 32 meq/L 03/03/2025 1:55 PM EDT [facility] Calcium 9.1 8.5 - 10.1 mg/dL 03/03/2025 1:55 PM EDT [facility] Glucose 96 74 - 100 mg/dL 03/03/2025 1:55 PM EDT [facility] BUN 6(L) 7 - 18 mg/dL 03/03/2025 1:55 PM EDT [facility] Creatinine 0.83 0.70 - 1.20 mg/dL 03/03/2025 1:55 PM EDT [facility] BUN/Creatinine 7 03/03/2025 1:55 PM EDT [facility] Albumin 4.2 3.4 - 5.0 g/dL 03/03/2025 1:55 PM EDT [facility] Alkaline Phosphatase 93 46 - 116 U/L 03/03/2025 1:55 PM EDT [facility] ALT 57 12 - 78 U/L 03/03/2025 1:55 PM EDT [facility] AST 44(H) 15 - 37 U/L 03/03/2025 1:55 PM EDT [facility] Total Bilirubin 0.7 0.2 - 1.0 mg/dL 03/03/2025 1:55 PM EDT [facility] Protein, Total 7.8 6.4 - 8.2 gm/dL 03/03/2025 1:55 PM EDT [facility] Anion Gap 11 11 - 22 03/03/2025 1:55 PM EDT [facility] A/G Ratio 1.2 03/03/2025 1:55 PM EDT [facility] Globulin 3.6 g/dL 03/03/2025 1:55 PM EDT [facility] Osmolality Calc 271.3 mOsm/kg 1:55 PM EDT [facility] eGFR (mL/min/1.73m2) >60 >=60 mL/min/1.7 3m2 03/03/2025 1:55 PM EDT [facility] Comment:ESTIMATED GFR IS NOT ACCURATE CREATININE CLEARANCE IN PREDICTING GLOMERULAR FILTRATION RATE. ESTIMATED GFR IS NOT APPLICABLE FOR DIALYSIS PATIENTS. Blood Venipuncture / Unknown 03/03/2025 1:21 PM EDT 03/03/2025 1:27 PM EDT us Nel Mckeon NP LAB BLOOD ORDERABLES Final Res ult [facility] [address] [place] [address] * (ABNORMAL) CBC with Auto Diff (03/03/2025 1:21 PM EDT) WBC 8.4 4.8 - 10.8 K/ L 03/03/2025 1:33 PM EDT [facility] RBC 4.94 3.80 - 5.20 M/ L 03/03/2025 1:33 PM EDT [facility] Hemoglobin 16.5 12.8 - 17.4 GM/DL 03/03/2025 1:33 PM EDT [facility] Hematocrit 44.2 39.0 - 51.0 % 03/03/2025 1:33 PM EDT [facility] MCV 90 81 - 101 fL 03/03/2025 1:33 PM EDT [facility] MCH 33.4 27.0 - 34.0 pg 03/03/2025 1:33 PM EDT [facility] MCHC 37.3(H) 32.0 - 36.0 GM/DL 03/03/2025 1:33 PM EDT [facility] RDW 13.2 11.5 - 14.5 % 03/03/2025 1:33 PM EDT [facility] Platelets 232 150 - 400 K/CU MM 03/03/2025 1:33 PM EDT [facility] MPV 9.9 9.4 - 12.4 fL 03/03/2025 1:33 PM EDT [facility] Nucleated Red Blood Cell 0.0 0 - 0.2 % 03/03/2025 1:33 PM EDT [facility] % Neutros 65 37 - 80 % 03/03/2025 1:33 PM EDT [facility] % Lymphs 27 10 - 50 % 03/03/2025 1:33 PM EDT [facility] % Monos 7 5 - 13 % 03/03/2025 1:33 PM EDT [facility] % Eos 1 0 - 7 % 03/03/2025 1:33 PM EDT [facility] % Baso 1 0 - 3 % 03/03/2025 1:33 PM EDT [facility] NRBC Absolute <0.01 0 - 0.012 K/ul 03/03/2025 1:33 PM EDT [facility] # Neutros 5.42 2.00 - 6.90 K/ L 03/03/2025 1:33 PM EDT [facility] # Lymphs 2.24 0.60 - 3.40 K/ L 03/03/2025 1:33 PM EDT [facility] # Monos 0.56 0.00 - 0.90 K/ L 03/03/2025 1:33 PM EDT [facility] # Eos 0.04 0.00 - 0.70 K/ L 03/03/2025 1:33 PM EDT [facility] # Baso 0.05 0.00 - 0.20 K/ L 03/03/2025 1:33 PM EDT [facility] Immature Granulocytes-Re lative 0.60 % 03/03/2025 1:33 PM EDT [facility] # IG 0.05(H) 0.00 - 0.00 K/uL 03/03/2025 1:33 PM EDT [facility] Blood Venipuncture / Unknown 03/03/2025 1:21 PM EDT 03/03/2025 1:27 PM EDT Narrative [facility] - 03/03/2025 1:33 PM EDT When CBC w/ Auto Diff is ordered the lab will add a Manual Differential as a quality check at no additional charge if: Lymphocytes greater than seventy five percent with normal or increased WBC Monocytes greater than Fifteen percent Basophil greater than four percent Bands >10% or several immature myeloids are seen on scan Blast? Flag noted Atypical Lymph flag noted us Nel Mckeon NP LAB BLOOD ORDERABLES Final Res ult [facility] [address], [place] [address] [phone] * ECG 12 lead (03/03/2025 1:18 PM EDT) VENTRICULAR RATE EKG/MIN 94 BPM GE MUSE ATRIAL RATE (MCT) 94 BPM GE MUSE DC Interval 172 ms GE MUSE QRS-INTERVAL (MSEC) 100 ms GE MUSE QT Interval 366 ms GE MUSE QTC Interval 457 ms GE MUSE P [place] 66 degrees GE MUSE R AXIS (MCT) 1 degrees GE MUSE T Wave [place] 4 degrees GE MUSE [place] Diagnosis Normal sinus rhythm Minimal voltage criteria for LVH, may be normal variant ( R in aVL ) Inferior infarct (cited on or before 03-SEP-2023) Confirmed by Michael HERNANDEZ, CJ ([id number]) on 03/04/2025 10:51:47 AM GE MUSE 03/03/2025 1:18 PM EDT 03/04/2025 10:51 AM EDT us Nel Mckeon NP ECG ORDERABLES Final Result GE MUSE documented in this encounter Visit Diagnoses Diagnosis Near syncope- Primary Palpitations Anxiety Anxiety state, unspecified documented in this encounter Administered Medications Inactive Administered Medications - up to 3 most recent administrations Medication Order MAR Action Action Date Dose Rate Site potassium chloride (KLOR-CON) ER tablet 40 mEq 40 mEq Once, oral, On Stephany 03/03/25 at 1405, For 1 dose, DO NOT CRUSH THIS DOSAGE FORM. Given 03/03/2025 2:20 PM EDT 40 mEq sodium chloride 0.9% (NS) bolus 1,000 mL Once, intravenous, Administer over 60 Minutes, On Stephany 03/03/25 at 1315, For 1 dose New Bag 03/03/2025 1:22 PM EDT 1,000 mLs 1000 mL/hr documented in this encounter Active and Recently Administered Medications Times are shown in EDT. Scheduled Medication Order 03/01/2025 03/02/2025 03/03/2025 potassium chloride (KLOR-CON) ER tablet 40 mEq (COMPLETED) 40 mEq Once, oral, On Stephany 03/03/25 at 1405, For 1 dose, DO NOT CRUSH THIS DOSAGE FORM. 1420 (Given - Provid er: Xander Cooper) sodium chloride 0.9% (NS) bolus (COMPLETED) 1,000 mL Once, intravenous, Administer over 60 Minutes, On Stephany 03/03/25 at 1315, For 1 dose 1322 (New Bag - Prov ider: Xander Cooper)1422 (Stopped - Provider: Xander Cooper) documented in this encounter Care Teams Slag Expander Relationship Specialty Start Date End Date [facility] Kyra, [facility] [place] [address] PCP - General 03/03/25 documented as of this encounter
[2025-04-03 18:24] VITALS: BMI 33.0
[2025-04-03 18:27] LABS: Coronavirus 19, PCR Not Detected (NotDetected); Influenza A, PCR Not Detected (NotDetected); Influenza B, PCR Not Detected (NotDetected)
--- NOTE | 2025-04-03 18:27 | XR_ITS ---
PROCEDURE INFORMATION: Exam: XR Chest Exam date and time: 04/03/2025 6:34 PM Age: 30 years old Clinical indication: Cough TECHNIQUE: Imaging protocol: Radiologic exam of the chest. Views: 2 views. COMPARISON: CR XR CHEST PORTABLE 07/14/2024 3:21 AM FINDINGS: Lungs: No consolidation. Pleural spaces: No significant pleural effusion. No pneumothorax. Heart/Mediastinum: No cardiomegaly. Bones/joints: No displaced fracture. Soft tissues: Unremarkable. IMPRESSION: No definite acute cardiopulmonary disease. If symptoms persist, consider CT for further evaluation.
--- OUTSIDE RECORDS SUMMARY | 2025-04-03 18:28 | XMS_ITS | Clinical Summary ---
Author Organization [facility] Address [address] [place] [address] Care Team Providers Care Nut Picker Name Role Phone Unavailable Primary Care Provider [...] ANNUAL PHYSICAL 10/10/2021 HEPATITIS C SCREENING 10/10/2021 COVID-19 Vaccine (2023-2 5 season) 2024 INFLUENZA VACCINE 04/27/2025 Pneumococcal Vaccine 0-49 Aged Out No longer eligible based on patient's age to complete this topic Insurance MEDICAID [place]
--- OUTSIDE RECORDS SUMMARY | 2025-04-03 18:28 | XMS_ITS | Referral Summary ---
Author Organization [employer] ([place], [place], [place], [place]) Address [address] [place] [address] Care Team Providers Care Getterer Name Role Phone [facility] Connection, Find-A-Doc Primary Care Provider Encounters Date Type Department Care Team Description 03/03/2025 Travel 03/03/2025 1:01 PM EDT - 03/03/2025 2:32 PM EDT Emergency [facility] Emergency Department [address] [place] [address] Rene Rivas DO Near syncope (Primary Dx); Palpitations; Anxiety Discharge Disposition: Home or Self Care from Last 3 Months Allergies Active Allergy Reactions Criticality Noted Date Comments Amoxicillin 06/10/2023 Penicillin 09/03/2023 Medications LORazepam (ATIVAN) 1 MG tablet Take 1 tablet (1 mg total) by mouth every 6 (six) hours as needed for Anxiety for up to 6 doses. Max Daily Amount: 4 mg 6 tablet 4 Active Additional Information Patient not taking.Reported on 02/02/2024 omeprazole (PriLOSEC) 40 MG capsule Take 1 capsule (40 mg total) by mouth daily. Active diazePAM (VALIUM) 5 MG tablet Take 1 tablet (5 mg total) by mouth. 5 Active hydrOXYzine (ATARAX) 25 MG tablet Take 1 tablet (25 mg total) by mouth every 8 (eight) hours as needed for anxiety for up to 10 days Look-alike/So und-alike medication. 30 tablet 03/13/20 25 Active Problems Problem Noted Date Diagnosed Date Laceration of left index fin chapis without foreign body without damage to nail, initial encounter 02/02/2024 Immunizations Immunization Administration Dates Next Due Tdap 02/02/2024 Social History Tobacco Use Types Packs/Day Years Used Date Smoking Tobacco: Every Day Cigarettes 0.5 14.7 Started: 2010 Smokeless Tobacco: Never Tobacco Cessation:Ready to Q uit: Not Asked; Counseling Given: Not Answered Alcohol Use Standard Drinks/Week Comments Yes 0 (1 standard drink = 0.6 oz pur e alcohol) Family and Community Support Answer Nick e Recorded Help with Day to Day Activities Not on file 08/16/2023 Feeling Lonely or Isolated Not on file 08/16 Educational Attainment Answer Date Jeronimo rded Speak language other than Greek at home Not on file 08/16/2023 Want help with school or training Not on file 08/16/2023 Substance Use Answer Date Recorded Used prescription meds for non-medical reasons N ot on file 08/16/2023 Used illegal drugs past 12 months Not on file 08/16/2023 Sex and Gender Information Value Date Recorded Sex Assigned at Not on file 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 Gender Identity Not on file Sexual Orientation Not on file Last Filed Vital Signs Vital Sign Reading [...] Mass Index 34.58 03/03/2025 1:07 PM EDT Plan of Treatment Not on file Procedures Procedure Name Priority Date/Time Associated Diagnosis Comments XR CHEST 1 VIEW PORTABLE / BEDSIDE STAT 03/03/2025 1:22 PM EDT HIV 1/2 AG/AB COMBO STAT 03/03/2025 1 :21 PM EDT D-DIMER STAT 03/03/2025 1:21 PM EDT URINALYSIS, REFLEX MICROSCOPIC AND CULTURE IF INDICATED STAT 03/03/2025 1:21 PM EDT HIGH SENSITIVITY TROPONIN I STAT 03/03/2025 1:21 PM EDT MAGNESIUM STAT 03/03/2025 1:21 PM EDT LIPASE STAT 03/03/2025 1:21 PM EDT COMPREHENSIVE METABOLIC PANEL STAT 03/03/2025 1:21 PM EDT CBC W/ AUTO DIFF STAT 03/03/2025 1:21 PM EDT FS_MODEL_IP_ECG 12-LEAD STAT 03/03/2025 1:18 PM EDT from Last 3 Months Results * XR chest 1 view portable [...] Harrell. Transcribed by Vu Blood PA-C. us Nel Mckeon LADLE REPAIRER IMG DIAGNOSTIC IMAGING ORDERAB LES Final Result * (ABNORMAL) CBC with Auto Diff (03/03/2025 1:21 PM EDT) WBC 8.4 4.8 - 10.8 K/ L 03/03/2025 1:33 PM EDT [facility] RBC 4.94 3.80 - 5.20 M/ L 03/03/2025 1:33 PM EDT [facility] Hemoglobin 16.5 12.8 - 17.4 GM/DL 03/03/2025 1:33 PM EDT [facility] Hematocrit 44.2 39.0 - 51.0 % 03/03/2025 1:33 PM EDT [facility] MCV 90 81 - 101 fL 03/03/2025 1:33 PM EDT [facility] MCH 33.4 27.0 - 34.0 pg 03/03/2025 1:33 PM EDT [facility] MCHC 37.3(H) 32.0 - 36.0 GM/DL 03/03/2025 1:33 PM EDT [facility] RDW 13.2 11.5 - 14.5 % 03/03/2025 1:33 PM EDT [facility] Platelets 232 150 - 400 K/CU MM 03/03/2025 1:33 PM EDT [facility] MPV 9.9 9.4 - 12.4 fL 03/03/2025 1:33 PM EDT [facility] Nucleated Red Blood Cell 0.0 0 - 0.2 % 03/03/2025 1:33 PM EDT [facility] % Neutros 65 37 - 80 % 03/03/2025 1:33 PM EDT [facility] % Lymphs 27 10 - 50 % 03/03/2025 1:33 PM EDT [facility] % Monos 7 5 - 13 % 03/03/2025 1:33 PM EDT [facility] % Eos 1 0 - 7 % 03/03/2025 1:33 PM EDT [facility] % Baso 1 0 - 3 % 03/03/2025 1:33 PM EDT [facility] NRBC Absolute <0.01 0 - 0.012 K/ul 03/03/2025 1:33 PM EDT [facility] # Neutros 5.42 2.00 - 6.90 K/ L 03/03/2025 1:33 PM EDT [facility] # Lymphs 2.24 0.60 - 3.40 K/ L 03/03/2025 1:33 PM EDT [facility] # Monos 0.56 0.00 - 0.90 K/ L 03/03/2025 1:33 PM EDT [facility] # Eos 0.04 0.00 - 0.70 K/ L 03/03/2025 1:33 PM EDT [facility] # Baso 0.05 0.00 - 0.20 K/ L 03/03/2025 1:33 PM EDT [facility] Immature Granulocytes-Re lative 0.60 % 03/03/2025 1:33 PM EDT [facility] # IG 0.05(H) 0.00 - 0.00 K/uL 03/03/2025 1:33 PM EDT [facility] Blood Venipuncture / Unknown 03/03/2025 1:21 PM EDT 03/03/2025 1:27 PM EDT Narrative [facility] - 03/03/2025 1:33 PM EDT When [...] NP LAB BLOOD ORDERABLES Final Res ult [facility] [address] [place] [id number], [facility] [phone] * (ABNORMAL) Urinalysis, Reflex Microscopic and Culture If Indicated (03/03/2025 1:21 PM EDT) Color, UA Yellow 03/03/2025 1:45 PM EDT [facility] Clarity, UA Clear 03/03/2025 1:45 PM EDT [facility] Specific [place], UA 1.015 1.002 - 1.030 03/03/2025 1:45 PM EDT [facility] pH, UA 6.0 5.0 - 9.0 03/03/2025 1:45 PM EDT [facility] Leukocytes, UA Negative Negative 03/03/2025 1:45 PM EDT [facility] Nitrite, UA Negative Negative 03/03/2025 1:45 PM EDT [facility] Protein, UA Negative Negative 03/03/2025 1:45 PM EDT [facility] Glucose, UA Negative Negative 03/03/2025 1:45 PM EDT [facility] Ketones, UA Trace(A) Negative 03/03/2025 1:45 PM EDT [facility] Bilirubin, UA Negative Negative 03/03/2025 1:45 PM EDT [facility] Blood, UA Negative Negative 03/03/2025 1:45 PM EDT [facility] Urobilinogen, UA 0.2 mg/dL Normal 03/03/2025 1:45 PM EDT [facility] UA INDICATIONS Not indicated 03/03/2025 1:45 PM EDT [facility] Specimen Source Urine, Voided 03/03/2025 1:45 PM EDT [facility] Urine URINE / Unknown 03/03/2025 1 :21 PM EDT 03/03/2025 1:27 PM EDT Nel Mckeon NP URINE ORDERABLES Final Result [facility] [address] [place], [place] [id number] [place] [address] * HIV 1/2 AG/AB Combo (03/03/2025 1:21 PM EDT) [facility] HIV-1 P24 Antigen Nonreactive Nonreactive 03/04/2025 12:58 AM EDT [facility] Blood Venipuncture / Unknown 03/03/2025 1:21 PM EDT 03/03/2025 1:27 PM EDT Nel J Pasqualenge LADLE REPAIRER LAB BLOOD ORDERABLES Final Res ult Performing Organization Address [facility] Co de Phone Number [facility] [address] [place], [place] [address] [phone] * High Sensitivity Troponin I (03/03/2025 1:21 PM EDT) [facility] Troponin I High Sensitivity (pg/mL) 5.2 4 - 60.3 pg/mL 03/03/2025 1:55 PM EDT [facility] Comment: Troponin Result (pg/mL) *Interpretation 4-60.3 [...] PM EDT 03/03/2025 1:27 PM EDT Nel J Strange LADLE REPAIRER LAB BLOOD ORDERABLES Final Res ult Performing Organization Address City/[facility]/ZIP Co de Phone Number [facility] [address] [place] [address], [facility] [phone] * D-dimer (03/03/2025 1:21 PM EDT) D-Dimer, Quant (SJMS SJE) 279.29 <=500.00 ng/mL FEU 03/03/2025 2:12 PM EDT [facility] Comment: A normal D-dimer result <500 [...] EDT 03/03/2025 1:28 PM EDT us Nel J Strange LADLE REPAIRER LAB BLOOD ORDERABLES Final Res ult Performing Organization Address City/[facility]/ZIP Co de Phone Number [facility] [address] [place] [address] * Magnesium (03/03/2025 1:21 PM EDT) Magnesium 1.8 1.8 - 2.4 mg/dL 03/03/2025 1:55 PM EDT [facility] Blood Venipuncture / Unknown 03/03/2025 1:21 PM EDT 03/03/2025 1:27 PM EDT us Nel J Strange LADLE REPAIRER LAB BLOOD ORDERABLES Final Res ult [facility] [address] [place] [address] * (ABNORMAL) Lipase (03/03/2025 1:21 PM EDT) Lipase 14(L) 16 - 77 U/L 03/03/2025 1:55 PM EDT [facility] Blood Venipuncture / Unknown 03/03/2025 1:21 PM EDT 03/03/2025 1:27 PM EDT us Nel Mckeon LADLE REPAIRER LAB BLOOD ORDERABLES Final Res ult [facility] [address] [place] [address], [facility] [phone] * (ABNORMAL) Comprehensive metabolic panel (03/03/2025 1:21 PM EDT) Sodium 137 136 - 145 meq/L 03/03/2025 1:55 PM EDT [facility] Potassium 3.3(L) 3.5 - 5.1 meq/L 03/03/2025 1:55 PM EDT [facility] Chloride 102 98 - 107 meq/L 03/03/2025 1:55 PM EDT [facility] CO2 27 21 - 32 meq/L 03/03/2025 1:55 PM EDT [facility] Calcium 9.1 8.5 - 10.1 mg/dL 03/03/2025 1:55 PM EDT [facility] Glucose 96 74 - 100 mg/dL 03/03/2025 1:55 PM EDT [facility] BUN 6(L) 7 - 18 mg/dL 03/03/2025 1:55 PM EDT [facility] Creatinine 0.83 0.70 - 1.20 mg/dL 03/03/2025 1:55 PM EDT [facility] BUN/Creatinine 7 03/03/2025 1:55 PM EDT [facility] Albumin 4.2 3.4 - 5.0 g/dL 03/03/2025 1:55 PM EDT [facility] Alkaline Phosphatase 93 46 - 116 U/L 03/03/2025 1:55 PM EDT [facility] ALT 57 12 - 78 U/L 03/03/2025 1:55 PM EDT [facility] AST 44(H) 15 - 37 U/L 03/03/2025 1:55 PM EDT [facility] Total Bilirubin 0.7 0.2 - 1.0 mg/dL 03/03/2025 1:55 PM EDT [facility] Protein, Total 7.8 6.4 - 8.2 gm/dL 03/03/2025 1:55 PM EDT [facility] Anion Gap 11 11 - 22 03/03/2025 1:55 PM EDT [facility] A/G Ratio 1.2 03/03/2025 1:55 PM EDT [facility] Globulin 3.6 g/dL 03/03/2025 1:55 PM EDT [facility] Osmolality Calc 271.3 mOsm/kg 1:55 PM EDT [facility] eGFR (mL/min/1.73m2) >60 >=60 mL/min/1.7 3m2 03/03/2025 1:55 PM EDT [facility] Comment:ESTIMATED GFR IS NOT ACCURATE CREATININE CLEARANCE IN PREDICTING GLOMERULAR FILTRATION RATE. ESTIMATED GFR IS NOT APPLICABLE FOR DIALYSIS PATIENTS. Blood Venipuncture / Unknown 03/03/2025 1:21 PM EDT 03/03/2025 1:27 PM EDT us Nel Mckeon LADLE REPAIRER LAB BLOOD ORDERABLES Final Res ult [facility] [address] [place] [address], [facility] [phone] * ECG 12 lead (03/03/2025 1:18 PM EDT) VENTRICULAR RATE EKG/MIN 94 BPM GE MUSE ATRIAL RATE (MCT) 94 BPM GE MUSE [place] Interval 172 ms GE MUSE QRS-INTERVAL (MSEC) 100 ms GE MUSE QT Interval 366 ms GE MUSE QTC Interval 457 ms GE MUSE P [place] 66 degrees GE MUSE R AXIS (MCT) 1 degrees GE MUSE T Wave [place] 4 degrees GE MUSE [place] Diagnosis Normal sinus rhythm Minimal voltage criteria for LVH, may be normal variant ( R in aVL ) Inferior infarct (cited on or before 03-SEP-2023) Confirmed by Michael HERNANDEZ, CJ ([id number]) on 03/04/2025 10:51:47 AM GE MUSE 03/03/2025 1:18 PM EDT 03/04/2025 10:51 AM EDT us Nel Mckeon LADLE REPAIRER ECG ORDERABLES Final Result GE MUSE from Last 3 Months Insurance [facility] Care Teams Getterer Relationship Specialty Start Date End Date [facility] Connection, [facility]Doc [facility] [place] [address] PCP - General 03/03/25
--- OUTSIDE RECORDS SUMMARY | 2025-04-03 18:28 | XMS_ITS | Patient Health Record ---
Author Organization [facility] Address [address] [place] [address] Care Team Providers Care Memorial Designer Name Role Phone COLT CRANE Primary Care Provider Reason For Referral No Information Plan Of Treatment No Information Medical (General) History Surgical History Surgery Date(Month/Year) No Surgeries As Of Todays Date
--- OUTSIDE RECORDS SUMMARY | 2025-04-03 18:28 | XMS_ITS | Encounter Summary ---
Author Organization [employer] ([place], [place], [place], [place]) Address [address] [place] [address] Care Team Providers Care Lacquer Machine Feeder Name Role Phone [facility]ra [facility] Primary Care Provider Encounter Details Date Type Department Care Team (Latest Contact Info) Description 03/03/2025 Travel Social History Tobacco Use Types Packs/Day Years [...] Date Jeronimo rded Speak language other than Honduran at home Not on file 08/16/2023 Want help with school or training Not on file 08/16/2023 Substance Use Answer Date Recorded Used prescription meds for non-medical reasons N ot on file 08/16/2023 Used illegal drugs past 12 months Not on file 08/16/2023 Sex and Gender Information Value Date Recorded Sex Assigned at Not on file 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 Connection Find-a-Doc [place] [id number] PCP - General 03/03/25 documented as of this encounter
--- OUTSIDE RECORDS SUMMARY | 2025-04-03 18:28 | XMS_ITS | Clinical Summary ---
Author Organization [employer] ([place], [place], [place], [place]) Address [address] [place] [address] Care Team Providers Care Group Therapy Counselor Name Role Phone [facility] Connection, Find-A-Doc Primary Care Provider Allergies Active Allergy Reactions Criticality Noted Date [...] 10 days Look-alike/So und-alike medication. 30 tablet 5 03/13/20 25 Active Problems Problem Noted Date Diagnosed Date Laceration of left index fin chapis without foreign body without damage to nail, initial encounter 02/02/2024 Encounters Date Type Department Care Team Description 03/03/2025 1:01 PM EDT - 03/03/2025 2:32 PM EDT Emergency [facility] Emergency Department [address] [place] [address] Rene Rivas DO Near syncope (Primary Dx); Palpitations; Anxiety Discharge Disposition: Home or Self Care 03/03/2025 Travel from Last 3 Months Immunizations Immunization Administration Dates Next Due Tdap [...] on file Legal Sex Male 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[employer] Gender Identity Not on file Sexual Orientation [...] 03/03/2025 1:07 PM EDT Plan of Treatment Health Maintenance Due Date Last Done Comments Depression Screening (12+) 2006 Tobacco Cessation Counseling and Screening (12+) 2006 Hepatitis C Screening 02/02/2012 Pneumococcal Vaccine: 0-49 Y ears (1 of 2 - PCV) 2013 Lipid Panel 2014 COVID-19 VACCINE ( season) 03/28/202406/2021, 04/09/2021 Influenza Vaccine (#1) 2025 DTAP/TDAP/TD VACCINES (3 - Td or Tdap) 2034, 09/10/2007 HIV Screening Completed 03/03/2025 Procedures Procedure Name Priority Date/Time Associated Diagnosis [...] Wilder Harrell. Transcribed by Vu Blood PA-C. Nel Mckeon NP IMG DIAGNOSTIC IMAGING ORDERAB LES Final Result * (ABNORMAL) CBC with Auto Diff (03/03/2025 1:21 PM EDT) WBC 8.4 4.8 - 10.8 K/ L 03/03/2025 1:33 PM EDT [facility] RBC 4.94 3.80 - 5.20 M/ L 03/03/2025 1:33 PM EDT [facility] Hemoglobin 16.5 12.8 - 17.4 GM/DL 03/03/2025 1:33 PM EDT [facility] Hematocrit 44.2 39.0 - 51.0 % 03/03/2025 1:33 PM EDT [facility] MCV 90 81 - 101 fL 03/03/2025 1:33 PM EDT [facility] MCH 33.4 27.0 - 34.0 pg 03/03/2025 1:33 PM EDT [facility] MCHC 37.3(H) 32.0 - 36.0 GM/DL 03/03/2025 1:33 PM EDT [facility] RDW 13.2 11.5 - 14.5 % 03/03/2025 1:33 PM EDT [facility] Platelets 232 150 - 400 K/CU MM 03/03/2025 1:33 PM EDT [facility] MPV 9.9 9.4 - 12.4 fL 03/03/2025 1:33 PM EDT [facility] Nucleated Red Blood Cell 0.0 0 - 0.2 % 03/03/2025 1:33 PM EDT [facility] % Neutros 65 37 - 80 % 03/03/2025 1:33 PM EDT [facility] % Lymphs 27 10 - 50 % 03/03/2025 1:33 PM EDT [facility] % Monos 7 5 - 13 % 03/03/2025 1:33 PM EDT [facility] % Eos 1 0 - 7 % 03/03/2025 1:33 PM EDT [facility] % Baso 1 0 - 3 % 03/03/2025 1:33 PM EDT [facility] NRBC Absolute <0.01 0 - 0.012 K/ul 03/03/2025 1:33 PM EDT [facility] # Neutros 5.42 2.00 - 6.90 K/ L 03/03/2025 1:33 PM EDT [facility] # Lymphs 2.24 0.60 - 3.40 K/ L 03/03/2025 1:33 PM EDT [facility] # Monos 0.56 0.00 - 0.90 K/ L 03/03/2025 1:33 PM EDT [facility] # Eos 0.04 0.00 - 0.70 K/ L 03/03/2025 1:33 PM EDT [facility] # Baso 0.05 0.00 - 0.20 K/ L 03/03/2025 1:33 PM EDT [facility] Immature Granulocytes-Re lative 0.60 % 03/03/2025 1:33 PM EDT [facility] # IG 0.05(H) 0.00 - 0.00 K/uL 03/03/2025 1:33 PM EDT [facility] Blood Venipuncture / Unknown 03/03/2025 1:21 PM EDT 03/03/2025 1:27 PM EDT Narrative [facility] - 03/03/2025 1:33 PM EDT When [...] NP LAB BLOOD ORDERABLES Final Res ult [facility] [address] [place] [id number] [phone] * (ABNORMAL) Urinalysis, Reflex Microscopic and Culture If Indicated (03/03/2025 1:21 PM EDT) Color, UA Yellow 03/03/2025 1:45 PM EDT [facility] Clarity, UA Clear 03/03/2025 1:45 PM EDT [facility] Specific Antoine, UA 1.015 1.002 - 1.030 03/03/2025 1:45 PM EDT [facility] pH, UA 6.0 5.0 - 9.0 03/03/2025 1:45 PM EDT [facility] Leukocytes, UA Negative Negative 03/03/2025 1:45 PM EDT [facility] Nitrite, UA Negative Negative 03/03/2025 1:45 PM EDT [facility] Protein, UA Negative Negative 03/03/2025 1:45 PM EDT [facility] Glucose, UA Negative Negative 03/03/2025 1:45 PM EDT [facility] Ketones, UA Trace(A) Negative 03/03/2025 1:45 PM EDT [facility] Bilirubin, UA Negative Negative 03/03/2025 1:45 PM EDT [facility] Blood, UA Negative Negative 03/03/2025 1:45 PM EDT [facility] Urobilinogen, UA 0.2 mg/dL Normal 03/03/2025 1:45 PM EDT [facility] UA INDICATIONS Not indicated 03/03/2025 1:45 PM EDT [facility] Specimen Source Urine, Voided 03/03/2025 1:45 PM EDT [facility] Urine URINE / Unknown 03/03/2025 1 :21 PM EDT 03/03/2025 1:27 PM EDT us Nel J Strange CUSTOMER SERVICE CASHIER URINE ORDERABLES Final Result Performing Organization Address [facility]/ZIP Co de Phone Number [facility] [address] [place], [place] [address] [phone] * HIV 1/2 AG/AB Combo (03/03/2025 1:21 PM EDT) HIV-1 P24 Antigen Nonreactive Nonreactive 03/04/2025 12:[address] [facility] Blood Venipuncture / Unknown 03/03/2025 1:21 PM EDT 03/03/2025 1:27 PM EDT us Nel J Strange CUSTOMER SERVICE CASHIER LAB BLOOD ORDERABLES Final Res ult Performing Organization Address City/[facility]/ZIP Co de Phone Number [facility] [address] [place], [place] [address] [phone] * High Sensitivity Troponin I (03/03/2025 1:21 PM EDT) Troponin I High Sensitivity (pg/mL) 5.2 4 - 60.3 pg/mL 03/03/2025 1:55 PM EDT [facility] Comment: Troponin Result (pg/mL) *Interpretation 4-60.3 [...] 03/03/2025 1:27 PM EDT Nel J Strange CUSTOMER SERVICE CASHIER LAB BLOOD ORDERABLES Final Res ult Performing Organization Address [facility] [[email or web address]] Co de Phone Number [facility] [address] [place] [address] * D-dimer (03/03/2025 1:21 PM EDT) D-Dimer, Quant ([facility]) 279.29 <=500.00 ng/mL FEU 03/03/2025 2:12 PM EDT [facility] Comment: A normal D-dimer result <500 [...] 1:21 PM EDT 03/03/2025 1:28 PM EDT Nel J Strange CUSTOMER SERVICE CASHIER LAB BLOOD ORDERABLES Final Res ult Performing Organization Address City/[facility]/ZIP Co de Phone Number [facility] [address] [place] [address] * Magnesium (03/03/2025 1:21 PM EDT) Magnesium 1.8 1.8 - 2.4 mg/dL 03/03/2025 1:55 PM EDT [facility] Blood Venipuncture / Unknown 03/03/2025 1:21 PM EDT 03/03/2025 1:27 PM EDT us Nel J Strange CUSTOMER SERVICE CASHIER LAB BLOOD ORDERABLES Final Res ult Performing Organization Address City/[facility]/ZIP Co de Phone Number [facility] [address] [place] [address] * (ABNORMAL) Lipase (03/03/2025 1:21 PM EDT) Lipase 14(L) 16 - 77 U/L 03/03/2025 1:55 PM EDT [facility] Blood Venipuncture / Unknown 03/03/2025 1:21 PM EDT 03/03/2025 1:27 PM EDT us Nel J Strange CUSTOMER SERVICE CASHIER LAB BLOOD ORDERABLES Final Res ult Performing Organization Address [facility] [[email or web address]] Co de Phone Number [facility] [address] [place] [address] * (ABNORMAL) Comprehensive metabolic panel (03/03/2025 1:21 PM EDT) Sodium 137 136 - 145 meq/L 03/03/2025 1:55 PM EDT [facility] Potassium 3.3(L) 3.5 - 5.1 meq/L 03/03/2025 1:55 PM EDT [facility] Chloride 102 98 - 107 meq/L 03/03/2025 1:55 PM EDT [facility] CO2 27 21 - 32 meq/L 03/03/2025 1:55 PM EDT [facility] Calcium 9.1 8.5 - 10.1 mg/dL 03/03/2025 1:55 PM EDT [facility] Glucose 96 74 - 100 mg/dL 03/03/2025 1:55 PM EDT [facility] BUN 6(L) 7 - 18 mg/dL 03/03/2025 1:55 PM EDT [facility] Creatinine 0.83 0.70 - 1.20 mg/dL 03/03/2025 1:55 PM EDT [facility] BUN/Creatinine 7 03/03/2025 1:55 PM EDT [facility] Albumin 4.2 3.4 - 5.0 g/dL 03/03/2025 1:55 PM EDT [facility] Alkaline Phosphatase 93 46 - 116 U/L 03/03/2025 1:55 PM EDT [facility] ALT 57 12 - 78 U/L 03/03/2025 1:55 PM EDT [facility] AST 44(H) 15 - 37 U/L 03/03/2025 1:55 PM EDT [facility] Total Bilirubin 0.7 0.2 - 1.0 mg/dL 03/03/2025 1:55 PM EDT [facility] Protein, Total 7.8 6.4 - 8.2 gm/dL 03/03/2025 1:55 PM EDT [facility] Anion Gap 11 11 - 22 03/03/2025 1:55 PM EDT [facility] A/G Ratio 1.2 03/03/2025 1:55 PM EDT [facility] Globulin 3.6 g/dL 03/03/2025 1:55 PM EDT [facility] Osmolality Calc 271.3 mOsm/kg 1:55 PM EDT [facility] eGFR (mL/min/1.73m2) >60 >=60 mL/min/1.7 3m2 03/03/2025 1:55 PM EDT [facility] Comment:ESTIMATED GFR IS NOT ACCURATE CREATININE CLEARANCE IN PREDICTING GLOMERULAR FILTRATION RATE. ESTIMATED GFR IS NOT APPLICABLE FOR DIALYSIS PATIENTS. Blood Venipuncture / Unknown 03/03/2025 1:21 PM EDT 03/03/2025 1:27 PM EDT us Nel Mckeon NP LAB BLOOD ORDERABLES Final Res ult [facility] [address] [phone] * ECG 12 lead (03/03/2025 1:18 PM EDT) VENTRICULAR RATE EKG/MIN 94 BPM GE MUSE ATRIAL RATE (MCT) 94 BPM GE MUSE [place] Interval 172 ms GE MUSE QRS-INTERVAL (MSEC) 100 ms GE MUSE QT Interval 366 ms GE MUSE QTC Interval 457 ms GE MUSE P [place]att 66 degrees GE MUSE R AXIS (MCT) 1 degrees GE MUSE T Wave [place] 4 degrees GE MUSE [facility] Diagnosis Normal sinus rhythm Minimal voltage criteria for LVH, may be normal variant ( R in aVL ) Inferior infarct (cited on or before 03-SEP-2023) Confirmed by Michael HERNANDEZ, CJ ([id number]) on 03/04/2025 10:51:47 AM GE MUSE 03/03/2025 1:18 PM EDT 03/04/2025 10:51 AM EDT us Nel Mckeon NP ECG ORDERABLES Final Result Performing Organization Address City/State/[facility] [[email or web address]] Co de Phone Number GE MUSE from Last [address] [facility] Care Teams Group Therapy Counselor Relationship Specialty Start Date End Date [facility] Connection, Find-A-Doc [facility] [place] [address] PCP - General 03/03/25
[2025-04-03 18:30] VITALS: BP 150/102; PULSE 101; RESP 18; TEMP 37.3; O2SAT 97; BMI 33.0
[2025-04-03 18:42] VITALS: O2SAT 95
--- NOTE | 2025-04-03 18:46 | ED_ITS ---
<Statement entered by Nancy Crenshaw DO - 04/03/25 23:38> I was consulted by the JANET, and we discussed the complexity of problems being addressed. I approve the treatment and management plan for this patient's care in the emergency department, thus performing a substantial portion of the medical decision making. Nancy Crenshaw DO Discharge Plan Disposition Patient Disposition: Home, Self-Care Condition: Good Prescriptions Prescriptions: New [id number] [Bromfed DM] 2-30-10 mg/5 mL syrup 10 ml PO Q6H PRN (Reason: cold symptoms) 3 Days Qty: 118 0RF No Action tramadol 50 mg tablet 50 mg PO Q12H PRN (Reason: pain) Qty: 40 0RF pantoprazole 40 MG tablet,delayed release (DR/EC) 40 mg PO DAILY Qty: 30 0RF omeprazole 40 mg capsule,delayed release(DR/EC) 40 mg PO DAILY 14 Days Qty: 14 0RF methocarbamol 750 mg tablet 750 mg PO TID Qty: 90 0RF ketorolac 10 mg tablet 10 mg PO Q8H PRN (Reason: pain) 2 Days Qty: 7 0RF Referrals Follow up/Referrals: Santino Mccloud MD [Primary Care Provider, Medical] - See instructions Activity Restrictions/Add. Instructions Additional Instructions/Restrictions: Likely viral. Viruses can take 7-14 days to run their course. Nasal saline and bulb syringe or nose Angelica to remove nasal drainage to help with nasal congestion. Hard to eat, drink, sleep with nasal congestion so important to keep this cleaned out. Monitor temp. Tylenol or Motrin as needed for pain or fever Encourage fluids, water, Gatorade, Powerade, Pedialyte if /toddler/child Warm salt water gargles Warm fluids Sore throat lozenges Sleep elevated Humidifier/vaporizer Follow-up immediately for new or worsening symptoms or no noticeable improvement over the next 48-72 hours. Clinical Impressions Clinical Impression: Upper respiratory infection, viral Instructions Patient Instructions: DI for Viral Upper Respiratory Infection -- Adult Print Language Print Language: Montenegrin Discharge ED Provider: Nancy Crenshaw General Adult HPI <Joaquina Shaw ([facility]), [employer] - Last Filed: 04/03/25 19:30> General Chief complaint: Upper Respiratory Infection Stated complaint: congestion,headache,cough,sore ribs Time Seen by Provider: 04/03/25 18:26 Mode of Arrival: Ambulatory Source of Information: Patient Description of Symptoms (Recalled from ER Triage Doc. by RN): Patient complaining of cough, congestion, sore throat, body aches since 03/31/25. Was seen at another ER on 04/01/25 and tested negative for COVID. Patient states he has been taking Phenergan cough syrup he has at home, which has helped. History of Present Illness HPI narrative: 30-year-old male presents for complaints of cough, congestion, sore throat, left upper abdominal pain and body aches since . Was seen in another ER on Friday and tested negative for COVID and flu and was given azithromycin. Patient states he feels worse now than when he went to the ER the first time. Related Data Previous Rx's ?Medication ?Instructions ?Recorded pantoprazole 40 mg tablet,delayed 40 mg PO DAILY #30 t abs 07/30/20 release omeprazole 40 mg capsule,delayed 40 mg PO DAILY 14 day s #14 caps 08/08/22 release ketorolac 10 mg tablet 10 mg PO Q8H PRN pain 2 days #7 07/16/24 tabs methocarbamol 750 mg tablet 750 mg PO TID #90 tabs tramadol 50 mg tablet 50 mg PO Q12H PRN pain #40 t abs 12/13/24 joxzymhhzqqobpa-ulakggakyffnvdl-FI 10 ml PO Q6H PRN co ld symptoms 3 04/03/25 2 mg-30 mg-10 mg/5 mL oral syrup days #118 mL (Bromfed DM) Allergies Allergy/AdvReac Type Severity Reaction Status Date / Time amoxicillin Allergy Hives Verified 11/09/24 11:05 Penicillins Allergy Hives Verified 11/09/24 11:05 <Nancy Crenshaw DO - Last Filed: 04/03/25 23:38> History of Present Illness HPI narrative: 30-year-old male presents for complaints of cough, congestion, sore throat, left upper abdominal pain and body aches since . Was seen in another ER on Friday and tested negative for COVID and flu and was given azithromycin. Patient states he feels worse now than when he went to the ER the first time. Patient denies any chest pain or shortness of breath. Patient denies any recent surgeries. Patient denies any recent long travel. No history of blood clots. Patient states that he has been constantly coughing, has had no relief at night. Patient has been doing Tylenol Motrin and Mucinex at home. [facility] <[facility] [employer] - Last Filed: 04/03/25 19:30> [facility] Disclaimer: The information contained in this section may have been updated after the patient was seen, as this information can be updated by other users. Medical History , [employer]) Anxiety Depression Hyperlipidemia History of gastroesophageal reflux (GERD) Allergies Palpitations Surgical History , [employer]) No significant past surgical history Family History , [employer]) No significant family history Social History , [employer]) Smoking Status: Current every day smoker second hand exposure: Yes alcohol intake: current alcohol intake frequency: a few times a month substance use type: marijuana current occupational status: employed and unemployed Travel in the last 8 weeks?: None Have you lived/traveled outside [place] in past 30 days?: No Contact w/someone who lives/traveled outside US past 30 days?: No Exposure to someone with infectious disease in past 14 days?: No Do you have a fever (greater than 100.4 F or 38 C)?: No Have you tested positive for COVID-19?: No Exposed to someone with COVID-19 in past 14 days?: No Do you have a sore throat?: No Do you have a cough?: No Do you have any weakness?: No Do you have any diarrhea?: No Are you experiencing any unusual bleeding?: No Do you have any muscle aches/pain?: No Do you have any abdominal pain?: No Are you experiencing loss of taste or smell?: No Other Medical History Have you received the Flu Vaccine for this season: No Have you received the Pneumonia Vaccine: No <[facility] [employer] - Last Filed: 04/03/25 19:30> ROS Obtained: Yes All systems reviewed & no additional complaints except as documented Constitutional Constitutional: Reports system reviewed and no additional complaints, except as documented, Reports as per HPI, Reports body ache, Reports chills and Reports fever(s) ENT Ears, Nose, Mouth, and Throat: Reports system reviewed and no additional complaints, except as documented, Reports as per HPI, Reports nasal congestion, Reports nasal discharge, Reports post nasal drip and Reports sore throat Cardiovascular Cardiovascular: Reports system reviewed and no additional complaints, except as documented Respiratory Respiratory: Reports system reviewed and no additional complaints, except as documented, Reports as per HPI, Reports cough and Reports pain with cough Integumentary/Breasts Skin/Breast: Reports system reviewed and no additional complaints, except as documented Physical Exam <Kiradaniela tim ([facility]), [employer] - Last Filed: 04/03/25 19:30> General General appearance: alert and in no apparent distress Head Head exam: atraumatic Eye Eye exam: Present normal appearance ENT ENT exam: Present normal exam, normal oropharynx, mucous membranes moist and TM's normal bilaterally Respiratory Respiratory exam: Present normal lung sounds bilaterally Cardiovascular Cardiovascular exam: Present regular rate and normal rhythm Abdominal Exam Abdominal exam: Present soft, tenderness and normal bowel sounds Abdominal tenderness: Present LUQ Neurological Exam Neurological exam: Present alert and oriented X3 Skin Skin exam: Present warm and intact Medical Decision Making <Kiradaniela tim ([facility]), [employer] - Last Filed: 04/03/25 19:30> Medical Records Medical records reviewed: Yes I reviewed the patient's medical records. Screening: Per USPSTF and CDC recommendations, given the prevalence of disease in our region, it is our hospital?s policy to screen for HIV and viral Hepatitis for all patients aged 18 and over and those with ongoing risk factors. Pranay Inquiry Pt receiving controlled substance: No Pranay was queried for this patient: No Vital Signs: 04/03/25 18:30 04/03/25 18:42 04/03/25 19:17 Temperature 99.1 F Temperature Source Oral Pulse Rate Pulse Rate [Right Brachial] 101 H Respiratory Rate 18 Blood Pressure 141/95 H Blood Pressure [Right Arm] 150/102 H Blood Pressure Mean [Right Arm] 118 Blood Pressure Source Blood Pressure Source [Right Arm] Automatic Cuff Blood Pressure Position Blood Pressure Position [Right Arm] Sitting 02 Sat by Pulse Oximetry 97 95 96 Oxygen Delivery Method Room Air Room Air Room Air 04/03/25 19:41 Temperature 97.9 F Temperature Source Oral Pulse Rate 94 H Pulse Rate [Right Brachial] Respiratory Rate 18 Blood Pressure 136/90 Blood Pressure [Right Arm] Blood Pressure Mean [Right Arm] Blood Pressure Source Automatic Cuff Blood Pressure Source [Right Arm] Blood Pressure Position Sitting Blood Pressure Position [Right Arm] 02 Sat by Pulse Oximetry Oxygen Delivery Method Room Air Lab Data Lab results reviewed: Yes I reviewed the patient's lab results. Lab Results 04/03/25 18:20: SARS-CoV-2 (PCR) Not detected, Influenza Type A (PCR) Not detected, Influenza Type B (PCR) Not detected, RSV (PCR) Not detected, Rhinovirus (PCR) Not detected 04/03/25 18:35: Group A Strep Rapid Negative 04/03/25 18:40: WBC 7.7, RBC 5.08, Hgb 17.5, Hct 47.4, MCV 93.3, MCH 34.4 H, M CHC 36.9 H, RDW 13.0, Plt Count 207, MPV 10.1, Neut % (Auto) 76.5, Lymph % (Auto) 13.0, [place] % (Auto) 8.8, Eos % (Auto) 0.5, Baso % (Auto) 0.4, Neut # (Auto) 5.9, Lymph # (Auto) 1.0, [place] # (Auto) 0.7, Eos # (Auto) 0.0, Baso # (Auto) 0.0, Sodium 137, Potassium 3.7, Chloride 105, Carbon Dioxide 24, Anion Gap 11.7, BUN 6 L, Creatinine 0.70, Estimated Creat Clear 245, Estimated GFR 132, Est GFR ( Amer) 159, Glucose 99, Calcium 9.4, Total Bilirubin 0.6, AST 36, ALT 35, Alkaline Phosphatase 57, Total Protein 7.4, Albumin 4.5, Globulin 2.9, Albumin/Globulin Ratio 1.6, Monoscreen Negative 04/03/25 18:40 04/03/25 18:40 Orders (Tests/Meds): ED MEDICATIONS Discontinued Medications Generic Name Dose Route Start Last Admin Trade Name Freq PRN Reason Stop Dose Admin Dexamethasone 10 mg 04/03/25 19:23 04/03/25 19:28 Dexamethasone 4mg Tablet PO 04/03/25 19:24 10 mg ONCE ONE Administration ORDERS Category Date Time Status Chest XR 2 view (NOT portable) [XR chest 2V] Stat Exams 04/03/25 18:27 Completed CBC w/Auto Diff [Complete Blood Count Auto Diff] Stat Lab 04/03/25 18:40 Completed CMP [Comprehensive Metabolic Panel] Stat Lab 04/03/25 18:40 Completed Mini Respiratory Panel Stat Lab 04/03/25 18:20 Completed Monoscreen (Rapid) Stat Lab 04/03/25 18:40 Completed Rapid Strep Scrn Group A [Strep Scrn Group A (Rapid)] Lab 04/03/25 18:35 Completed Stat Strep Screen Confirmation Stat Micro 04/03/25 18:35 Received Radiology Data #1: Image Reviewed: Yes I reviewed the patient's radiology results Preliminary Findings: Normal/NAD Medical Decision Narrative: In summary patient is a 30-year-old male who presents to the emergency department for evaluation of sinus congestion, sore throat, cough, and left upper abdominal pain with cough. Patient is hemodynamically stable upon arrival, afebrile. Unremarkable physical exam. Differential diagnosis includes COVID, flu, upper respiratory infection. Initial workup will be conducted with labs within normal limits, strep negative and chest x-ray normal. Initial inventions include p.o. challenge. Initial workup reviewed by mi labs unremarkable chest x-ray,normal, upper respiratory panel pending. Upon repeat evaluation was able to tolerate p.o. liquids. Given this patient appropriate for discharge at this time continue taking Zithromax. Follow-up with PCP <Nancy Crenshaw DO - Last Filed: 04/03/25 23:38> Vital Signs: 04/03/25 18:30 04/03/25 18:42 04/03/25 19:17 Temperature 99.1 F Temperature Source Oral Pulse Rate Pulse Rate [Right Brachial] 101 H Respiratory Rate 18 Blood Pressure 141/95 H Blood Pressure [Right Arm] 150/102 H Blood Pressure Mean [Right Arm] 118 Blood Pressure Source Blood Pressure Source [Right Arm] Automatic Cuff Blood Pressure Position Blood Pressure Position [Right Arm] Sitting 02 Sat by Pulse Oximetry 97 95 96 Oxygen Delivery Method Room Air Room Air Room Air 04/03/25 19:41 Temperature 97.9 F Temperature Source Oral Pulse Rate 94 H Pulse Rate [Right Brachial] Respiratory Rate 18 Blood Pressure 136/90 Blood Pressure [Right Arm] Blood Pressure Mean [Right Arm] Blood Pressure Source Automatic Cuff Blood Pressure Source [Right Arm] Blood Pressure Position Sitting Blood Pressure Position [Right Arm] 02 Sat by Pulse Oximetry Oxygen Delivery Method Room Air Lab Data Lab Results 04/03/25 18:20: SARS-CoV-2 (PCR) Not detected, Influenza Type A (PCR) Not detected, Influenza Type B (PCR) Not detected, RSV (PCR) Not detected, Rhinovirus (PCR) Not detected 04/03/25 18:35: Group A Strep Rapid Negative 04/03/25 18:40: WBC 7.7, RBC 5.08, Hgb 17.5, Hct 47.4, MCV 93.3, MCH 34.4 H, M CHC 36.9 H, RDW 13.0, Plt Count 207, MPV 10.1, Neut % (Auto) 76.5, Lymph % (Auto) 13.0, [place] % (Auto) 8.8, Eos % (Auto) 0.5, Baso % (Auto) 0.4, Neut # (Auto) 5.9, Lymph # (Auto) 1.0, [place] # (Auto) 0.7, Eos # (Auto) 0.0, Baso # (Auto) 0.0, Sodium 137, Potassium 3.7, Chloride 105, Carbon Dioxide 24, Anion Gap 11.7, BUN 6 L, Creatinine 0.70, Estimated Creat Clear 245, Estimated GFR 132, Est GFR ( Amer) 159, Glucose 99, Calcium 9.4, Total Bilirubin 0.6, AST 36, ALT 35, Alkaline Phosphatase 57, Total Protein 7.4, Albumin 4.5, Globulin 2.9, Albumin/Globulin Ratio 1.6, Monoscreen Negative Orders (Tests/Meds): ED MEDICATIONS Discontinued Medications Generic Name Dose Route Start Last Admin Trade Name Freq PRN Reason Stop Dose Admin Dexamethasone 10 mg 04/03/25 19:23 04/03/25 19:28 Dexamethasone 4mg Tablet PO 04/03/25 19:24 10 mg ONCE ONE Administration ORDERS Category Date Time Status Chest XR 2 view (NOT portable) [XR chest 2V] Stat Exams 04/03/25 18:27 Completed CBC w/Auto Diff [Complete Blood Count Auto Diff] Stat Lab 04/03/25 18:40 Completed CMP [Comprehensive Metabolic Panel] Stat Lab 04/03/25 18:40 Completed Mini Respiratory Panel Stat Lab 04/03/25 18:20 Completed Monoscreen (Rapid) Stat Lab 04/03/25 18:40 Completed Rapid Strep Scrn Group A [Strep Scrn Group A (Rapid)] Lab 04/03/25 18:35 Completed Stat Strep Screen Confirmation Stat Micro 04/03/25 18:35 Received Medical Decision Narrative: In summary patient is a 30-year-old male who presents to the emergency department for evaluation of sinus congestion, sore throat, cough, and left upper abdominal pain with cough. Patient is hemodynamically stable upon arrival, afebrile. Unremarkable physical exam. Differential diagnosis includes COVID, flu, upper respiratory infection, mononucleosis, pneumonia, sinusitis, amongst others. Labs were reviewed and interpreted by myself: CBC showed no leukocytosis, hemoglobin was stable. CMP was unremarkable. Respiratory panel was negative. [place] screen was negative. Strep screen was negative. Chest x-ray was reviewed and interpreted by myself and showed no acute for consolidation, pneumothorax, pleural effusion or other acute cardiopulmonary process. Patient was given a dose of dexamethasone in the emergency department. Patient likely with an upper respiratory infection possible sinusitis. Patient was advised to continue taking Mucinex, continue taking Tylenol and Motrin. He was advised to continue taking the azithromycin as previously prescribed. Low concern for pulmonary embolism, patient is PERC negative. Was sent with Bromfed for cough. Precautions were discussed and patient was discharged home in stable condition. Critical Care <Joaquina Shaw ([facility]), [employer] - Last Filed: 04/03/25 19:30> Critical Care Time Critical Care Time: No
[2025-04-03 18:52] LABS: Hematocrit 47.4 % (42.0-52.0); Hemoglobin 17.5 g/dL (14.1-18.0); Immature Granulocytes % 0.8 %; Mean Corpuscular HGB Conc 36.9 g/dL (31.8-35.4); Mean Corpuscular Hemoglobin 34.4 pg (27.0-31.2); Mean Corpuscular Volume 93.3 fl (80-94); Nucleated Red Blood Cells % 0 %; Platelet Count 207 K/mm3 (142-424); Red Blood Count 5.08 M/mm3 (4.60-6.20); Red Cell Distribution Width-SD 44.6 fL; White Blood Count 7.7 K/mm3 (4.8-10.8)
[2025-04-03 18:54] LABS: Albumin Level 4.5 g/dl (3.5-5.0); Chloride 105 mmol/L (98-107); Potassium 3.7 mmoL/L (3.5-5.1); Sodium 137 mmol/L (136-145)
[2025-04-03 18:57] LABS: Alanine Aminotransferase 35 U/L (12-78); Albumin/Globulin Ratio 1.6 (1.1-1.8); Alkaline Phosphatase 57 U/L (38-126); Anion Gap 11.7 mEq/L (5-15); Aspartate Amino Transferase 36 U/L (17-59); Bilirubin,Total 0.6 mg/dl (0.2-1.3); Blood Urea Nitrogen 6 mg/dl (9-20); Calcium 9.4 mg/dl (8.4-10.2); Carbon Dioxide 24 mmol/L (22.0-30.0); Creatinine Clearance Estimated 245 mL/min (50-200); Creatinine,Serum 0.70 mg/dl (0.66-1.25); Estimated Glomerular Filt Rate 132 ml/min (>60); GFR (African American) 159 ML/MIN (>60); Globulin 2.9 g/dL (1.3-3.2); Glucose 99 mg/dl (74-100); Total Protein,Serum 7.4 g/dl (6.3-8.2)
[2025-04-03 19:01] LABS: Strep Scrn Group A (Rapid) Negative (Negative)
[2025-04-03 19:17] VITALS: BP 141/95; O2SAT 96
[2025-04-03] MEDS: DEXAMETHASONE 4MG TABLET 10 MG PO (19:28)
[2025-04-03 19:33] LABS: Monoscreen (Rapid) Negative (Negative)
[2025-04-03 19:41] VITALS: BP 136/90; PULSE 94; RESP 18; TEMP 36.6; O2SAT 96
--- NOTE | 2025-04-04 10:37 | PC.NURSE ---
Called about his swab results..
--- NOTE | 2025-04-04 16:48 | PC.NURSE ---
PT HAS CALLED MULTIPLE TIMES TO REQUEST [facility]ENERGAN WITH CODEINE COUGH MEDICINE. MADE AWARE. INSTRUCTED PT IF NO IMPROVEMENT HE SHOULD FOLLOW-UP WITH PCP OR BE REEVALUATED
== END 2025-04-03 19:43 | disposition home or self-care (01) ==
PROVIDERS: Nurse Practitioner Family; Emergency Provider Student in an Organized Health Care Education/Training Program; PCP Emergency Medicine
DX: R10.12 Left upper quadrant pain (principal); J06.9 Acute upper respiratory infection, unspecified; R07.0 Pain in throat; R09.81 Nasal congestion
CPT/HCPCS: 71046; 80053; 85025; 86318; 87430; 87631; 99283; 99284; J8540